=== PATIENT | female | born 1990 | race Caucasian/White ===

== ENCOUNTER 2021-09-30 13:48 | Emergency (ER) | payer OTHER, MEDICAID, SELFPAY ==
--- NOTE | ~2021-09-30 | XR_ITS ---
XR chest 2V DATE: 09/30/2021 14:28 INDICATION: Cough. TECHNIQUE: PA and lateral views COMPARISON: None FINDINGS: No pulmonary infiltrate or consolidation, pleural effusion or pulmonary vascular congestion or pneumothorax. Normal heart size. No hilar or mediastinal enlargement. Included skeletal structure s are unremarkable. IMPRESSION: Negative Reviewed, dictated and finalized at location A. IMPRESSION: Negative
[2021-09-30 14:17] VITALS: BP 122/78; PULSE 122; RESP 16; TEMP 37.3; O2SAT 98
--- NOTE | 2021-09-30 14:24 | ED.GENADULT ---
HPI - General Adult General Chief complaint: Upper Respiratory Infection Stated complaint: fever w/ cold Source: patient Mode of arrival: ambulatory Limitations: no limitations History of Present Illness HPI narrative: Patient presents for evaluation of respiratory symptoms for the last 2-1/2 weeks. Symptoms include sinus congestion, thick green/yellow drainage from bilateral nares, productive cough of yellow/green sputum, and fever. She denies chills, nausea, vomiting, diarrhea, shortness of breath, sore throat or otalgia. She had pneumonia back in June 2021 and was treated with amoxicillin at [facility]. She came down with COVID shortly thereafter. She does smoke about 1/2 ppd. She has been taking mucinex without considerable improvement in her symptoms thereafter. She states she had similar symptoms in the past with a sinus infection. Related Data Home Medications Medication Instructions Recorded Confirmed risperidone 0.5 mg PO BID 09/30/21 09/30/21 Allergies Allergy/AdvReac Type Severity Reaction Status Date / Time bacitracin Allergy Mild rash Verified 09/30/21 14:10 neomycin Allergy Mild rash Verified 09/30/21 14:10 polymyxin B Allergy Mild rash Verified 09/30/21 14:10 Review of Systems Review of Systems: CONSTITUTIONAL: Reports fever. Denies chills, or sweats. EYES: Denies visual changes, redness, or discharge. ENT: Reports sinus congestion and thick yellow, green drainage CARDIOVASCULAR: Denies chest pain, palpitations, or edema. RESPIRATORY: Reports cough. Denies SOB. GASTROINTESTINAL: Denies abdominal pain, nausea, vomiting, or diarrhea. GENITOURINARY: Denies dysuria or hematuria. SKIN: Denies rash or itching. MUSCULOSKELETAL: Denies back pain, joint pain, or myalgia. NEUROLOGIC: Denies headache, numbness, dizziness, or weakness. PSYCHIATRIC: Denies anxiety or depression. [facility] Past Medical History Medical History Anxiety Surgical History Surgical History (Updated 09/30/21 @ 14:26 by JOHNNIE Atkinson, RODNEY) History of salpingectomy Family History Family History Mother Family history non-contributory Social History Social History Smoking packs per day: 0.5 Smoking cigarettes per day: 10.0 Smoking status: Current every day smoker Alcohol intake: never Substance use: never Living arrangements: with family Gender identity (if verbalized by the patient): Female Sexual Orientation (if Verbalized by the Patient): Straight or Heterosexual Spiritual care concerns: No Exam Narrative: GENERAL: Well-appearing, well-nourished, and in no acute distress. HEAD: Normocephalic, atraumatic. EYES: PERRLA and EOMI. ENT: Nares clear, no rhinorrhea or epistaxis. Mucous membranes moist. Oropharynx without tonsillar hypertrophy exudate or other lesions. Bilateral TMs pearly navas nonbulging NECK: Supple. No adenopathy or masses. No carotid bruits or JVD CHEST: Cough noted on exam. Clear to auscultation. No respiratory distress. No wheezes rales or rhonchi HEART: Regular rate and rhythm. No murmur heard. Normal peripheral pulses. ABDOMEN: Soft, nontender, nondistended, normal active bowel sounds. EXTREMITIES: Normal range of motion. No edema. SKIN: Warm, dry, no rash. NEURO: No focal deficits. Alert and oriented x3. PSYCH: Normal mood and affect. Course Course Emergency Course: This is a 30-year-old female who presented with complaints of respiratory symptoms. Strep, influenza were negative. Chest x-ray was negative. She does meet criteria for ABRS based on symptom duration, presence of thick mucopurulent drainage from the naris and presence of fever. In past augmentin has helped. We will send script in for this. She should follow up outpatient for further evaluation and treatment and re
== END 2021-09-30 15:25 | disposition home or self-care (01) ==
PROVIDERS: Emergency Provider Nurse Practitioner
DX: J01.90 Acute sinusitis, unspecified (principal); F17.210 Nicotine dependence, cigarettes, uncomplicated
CPT/HCPCS: 71046; 87081; 87804; 87880; 99213; G0463

== ENCOUNTER 2022-02-13 15:06 | Emergency (ER) | payer OTHER, MEDICAID, SELFPAY ==
--- NOTE | ~2022-02-13 | XR_ITS ---
EXAMINATION: XR ankle RT min 3V DATE: 02/13/2022 15:27 INDICATION: Right ankle pain. Fall. TECHNIQUE: 4 views of right ankle were obtained. COMPARISON: None. FINDINGS: Bone alignment is normal. No fracture. Joint spaces are normal. There is ankle soft tissue swelling. IMPRESSION: 1. No fracture. Reviewed, dictated and finalized at location A. IMPRESSION: 1. No fracture.
--- NOTE | 2022-02-13 15:07 | ED.LOWEXIN ---
HPI - Extremity Injury (Lower) General Stated Complaint: right ankle injury Time Seen by Provider: 02/13/22 15:07 Source: patient Mode of arrival: ambulatory Limitations: no limitations History of Present Illness HPI Narrative: Ms. Carrillo is a 31-year-old female patient presented to the clinic today with complaints of right ankle injury/pain. She reports she was taking out the trash around 1:00 today when her son bumped into her and that tripped her and she fell injuring her right ankle. She states that her ankle went in every which way and she felt a pop with pain radiating up her leg. She says the entire ankle hurts at this time and she has a lot of pain with walking. Related Data Home Medications Medication Instructions Recorded Confirmed risperidone 0.5 mg tablet 0.5 mg PO BID 09/30/21 09/30/21 Allergies Allergy/AdvReac Type Severity Reaction Status Date / Time bacitracin Allergy Mild rash Verified 02/13/22 15:17 neomycin Allergy Mild rash Verified 02/13/22 15:17 polymyxin B Allergy Mild rash Verified 02/13/22 15:17 Review of Systems Review of Systems: Pertinent positives per HPI. Patient denies any fever, chills, rash, headache, visual changes, dizziness, cough, runny nose, sore throat, shortness of breath, chest pain, palpitations, nausea, vomiting, diarrhea, constipation, abdominal pain, or any urinary issues. [facility] Past Medical History Medical History Anxiety Surgical History Surgical History History of salpingectomy Family History Family History Mother Family history non-contributory Social History Social History Smoking packs per day: 0.5 Smoking cigarettes per day: 10.0 Smoking status: Current every day smoker Alcohol intake: never Substance use: never Gender identity (if verbalized by the patient): Female Sexual Orientation (if Verbalized by the Patient): Straight or Heterosexual Spiritual care concerns: No Comments At the time of my signature, I reviewed and agree with the nursing past medical, surgical, social, and family history. There is no relevant family history pertinent to the patient complaint. Exam Narrative: General: Well-developed, well nourished, in no apparent distress Head: Normocephalic, atraumatic. Cardio: Regular rate and rhythm, s1 and s2 normal, no murmur appreciated. Resp: Clear to auscultation bilaterally, no rhonchi, rales, wheezing or rubs. Musculoskeletal: No deformity, tender to palpation over the ankle joint mostly to the lateral malleolus, grossly normal range of motion however she does have a lot of pain with range of motion, muscle strength strong and equal, peripheral pulse strong, no edema, no cyanosis, normal gait and station Course Course Emergency Course: Portions of this record may have been created with voice recognition software. Level of Care: Express Care Visit Vital Signs Vital signs: Vital signs reviewed MDM - Extremity Injury (Lower) MDM Narrative Medical decision making narrative: At the time of visit patient is resting comfortably on the exam table. X-ray was performed and was negative for any fracture of the right ankle. I suspect patient has some right ankle sprain and supportive measures were discussed with the patient she voiced understanding of discharge instructions and agrees to treatment plan. Differential Diagnosis Differential diagnosis: Likely ankle sprain and strain and ankle fracture Imaging Data Attestation: I personally reviewed and interpreted this imaging study as follows: My impression: Negative for fracture or malalignment of the right ankle. Radiologist's impression: [facility] [address] [employer] [place] [address] XRa
[2022-02-13 15:11] VITALS: BP 119/68; PULSE 90; RESP 14; TEMP 36.9; O2SAT 99
== END 2022-02-13 15:43 | disposition home or self-care (01) ==
PROVIDERS: Emergency Provider Nurse Practitioner Family
DX: S93.401A Sprain of unspecified ligament of right ankle, initial encounter (principal); W03.XXXA Other fall on same level due to collision with another person, initial encounter; F17.210 Nicotine dependence, cigarettes, uncomplicated
CPT/HCPCS: 73610; 99213; G0463

== ENCOUNTER 2022-11-14 13:36 | Emergency (ER) | payer OTHER, SELFPAY ==
[2022-11-14 13:51] VITALS: BP 142/73; PULSE 107; RESP 16; TEMP 36.9; O2SAT 98
--- NOTE | 2022-11-14 14:04 | ED.EYEPROB ---
HPI - Eye Problem General Chief complaint: Eye Problems Stated complaint: Eye Problem Source: patient and RN notes reviewed History of Present Illness HPI Narrative: Patient is 31-year-old female with complaints of right eye redness that has been present for the past couple weeks. Patient states she wakes up in the morning with yellow-green drainage from the eye. Patient reports mild pain to the eye. There is no edema noted. Denies visual disturbance. Patient also reports nasal congestion and drainage; states that her allergies have been bothering her for approximately two months. She reports history of seasonal allergies. Related Data Home Medications Medication Instructions Recorded Confirmed buspirone 10 mg tablet mg 11/14/22 fluticasone propionate 50 intranasal 11/14/22 mcg/actuation nasal spray,suspension risperidone 1 mg tablet mg 11/14/22 11/14/22 Allergies Allergy/AdvReac Type Severity Reaction Status Date / Time bacitracin Allergy Mild rash Verified 11/14/22 14:00 neomycin Allergy Mild rash Verified 11/14/22 14:00 polymyxin B Allergy Mild rash Verified 11/14/22 14:00 Review of Systems Review of Systems: CONSTITUTIONAL: Denies fever, chills, or sweats. EYES: Denies visual changes. Reports right eye redness and yellow/green discharge. ENT: Denies otalgia and sore throat. Reports nasal drainage and congestion. CARDIOVASCULAR: Denies chest pain, palpitations, or edema. RESPIRATORY: Denies cough or dyspnea. GASTROINTESTINAL: Denies abdominal pain, nausea, vomiting, or diarrhea. GENITOURINARY: Denies dysuria or hematuria. SKIN: Denies rash or itching. MUSCULOSKELETAL: Denies back pain, joint pain, or myalgia. NEUROLOGIC: Denies headache, numbness, or weakness. Pertinent positives per HPI. [facility] Past Medical History Medical History Anxiety Surgical History Surgical History History of salpingectomy Family History Family History Mother Family history non-contributory Social History Social History Smoking packs per day: 0.5 Smoking cigarettes per day: 10.0 Smoking status: Current every day smoker Alcohol intake: never Substance use: never Living arrangements: with family Gender identity (if verbalized by the patient): Female Sexual Orientation (if Verbalized by the Patient): Straight or Heterosexual Spiritual care concerns: No Comments At the time of my signature, I reviewed and agree with the nursing past medical, surgical, social, and family history. There is no relevant family history pertinent to the patient complaint. Exam Narrative: GENERAL: This is a well-nourished, well-developed patient, in no apparent distress. HEAD: normocephalic, atraumatic. EYES: PERRL. Sclera injection noted to right eye. No drainage noted. Vision is grossly intact with no visual disturbance. EARS: External ears normal, auditory canals clear and without drainage, TMs normal without perforation. Hearing grossly intact. NOSE: External nose normal with no obvious nasal discharge, nares without redness, no rhinorrhea. THROAT: Mucous membranes moist, posterior pharynx clear. NECK: Neck supple, non-tender without lymphadenopathy, masses or thyromegaly. CARDIOVASCULAR: Regular rate and rhythm without murmurs, gallops, or rubs. RESPIRATORY: Clear to auscultation. Breath sounds equal bilaterally. No wheezes, rales, or rhonchi. GASTROINTESTINAL: Abdomen soft, non-tender, nondistended. Bowel sounds are active. No hepato-splenomegaly, or palpable masses. No guarding. SKIN: warm, intact with no suspicious lesions or rash, good texture and turgor. NEURO: awake, alert, and oriented to person, place and time. There were no obvious focal neurologic abnormalities. EXTREMITIES: No clubbing,
== END 2022-11-14 14:10 | disposition home or self-care (01) ==
PROVIDERS: Emergency Provider Nurse Practitioner Family
DX: H10.9 Unspecified conjunctivitis (principal); F17.210 Nicotine dependence, cigarettes, uncomplicated
CPT/HCPCS: 99213; G0463

== ENCOUNTER 2022-11-26 12:22 | Emergency (ER) | payer OTHER, MEDICAID, SELFPAY ==
--- NOTE | ~2022-11-26 | XR_ITS ---
. XR ankle LT min 3V 11/26/2022 12:48 INDICATION: Left ankle pain PROCEDURE: 4 views left ankle COMPARISON: No prior studies FINDINGS: Fracture, dislocation or subluxation is not identified. Ankle mortise intact. The soft tiss ues appear within normal limits. No foreign bodies are identified. IMPRESSION: 1: NO ACUTE BONE OR JOINT ABNORMALITY IDENTIFIED. Reviewed, dictated and finalized at location L.
[2022-11-26 12:29] VITALS: BP 114/73; PULSE 74; RESP 18; TEMP 36.7; O2SAT 98
--- NOTE | 2022-11-26 12:30 | ED.LOWEXIN ---
HPI - Extremity Injury (Lower) General Chief Complaint: Extremity Injury, Lower Stated Complaint: Left Ankle Injury Source: patient and RN notes reviewed History of Present Illness HPI Narrative: 31 yo F presents to urgent care with complaints of left lateral ankle pain. Pt states one week ago, she was mowing the lawn when she stepped in a hole and rolled her left ankle. Pt states she felt a pop at this time. Pt reports having pain still, mostly with applying pressure to the foot. Denies any numbness, tingling, or any other complaints. Pt has been using the RICE method at home and taking ibuprofen with minimal relief. Related Data Home Medications Medication Instructions Recorded Confirmed buspirone 10 mg tablet 10 mg PO TID 11/14/22 11/26/22 risperidone 1 mg tablet 1 mg PO BID 11/14/22 11/26/22 Allergies Allergy/AdvReac Type Severity Reaction Status Date / Time bacitracin Allergy Mild rash Verified 11/26/22 12:36 neomycin Allergy Mild rash Verified 11/26/22 12:36 polymyxin B Allergy Mild rash Verified 11/26/22 12:36 Review of Systems Review of Systems: CONSTITUTIONAL: Denies fever, chills, or sweats. EYES: Denies visual changes, redness, or discharge. ENT: Denies otalgia and sore throat CARDIOVASCULAR: Denies chest pain, palpitations, or edema. RESPIRATORY: Denies cough or dyspnea. GASTROINTESTINAL: Denies abdominal pain, nausea, vomiting, or diarrhea. GENITOURINARY: Denies dysuria or hematuria. SKIN: Denies rash or itching. MUSCULOSKELETAL:left lateral ankle pain NEUROLOGIC: Denies headache, numbness, or weakness. Pertinent positives per HPI. [facility] Past Medical History Medical History Anxiety Surgical History Surgical History History of salpingectomy Family History Family History Mother Family history non-contributory Social History Social History Smoking packs per day: 0.5 Smoking cigarettes per day: 10.0 Smoking status: Current every day smoker Alcohol intake: never Substance use: never Living arrangements: with family Gender identity (if verbalized by the patient): Female Sexual Orientation (if Verbalized by the Patient): Straight or Heterosexual Spiritual care concerns: No Comments At the time of my signature, I reviewed and agree with the nursing past medical, surgical, social, and family history. There is no relevant family history pertinent to the patient complaint. Exam Narrative: GENERAL: This is a well-nourished, well-developed patient, in no apparent distress. HEAD: normocephalic, atraumatic. EYES: Sclera clear/white. Vision is grossly intact. EARS: External ears normal, auditory canals clear and without drainage. Hearing grossly intact. NOSE: External nose normal with no obvious nasal discharge, nares without redness, no rhinorrhea. THROAT: Mucous membranes moist, posterior pharynx clear. NECK: Neck supple, non-tender without lymphadenopathy, masses or thyromegaly. CARDIOVASCULAR: Regular rate RESPIRATORY: No respiratory distress SKIN: warm, intact with no suspicious lesions or rash, good texture and turgor. NEURO: awake, alert, and oriented to person, place and time. There were no obvious focal neurologic abnormalities. EXTREMITIES:tenderness to left, lateral ankle, just inferior to lateral malleolus. Course Course Level of Care: Express Care Visit Vital Signs Vital signs: Vital Signs Temperature 98.1 F 11/26/22 12:29 Pulse Rate 74 11/26/22 12:29 Respiratory Rate 18 11/26/22 12:29 Blood Pressure 114/73 11/26/22 12:29 Pulse Oximetry 98 11/26/22 12:29 Oxygen Delivery Room Air 11/26/22 12:29 Temperature 98.1 F 11/26/22 12:29 Pulse Rate 74 11/26/22 12:29 Respiratory Rate 18 11/26/22 12:29
== END 2022-11-26 13:15 | disposition home or self-care (01) ==
PROVIDERS: Emergency Provider Nurse Practitioner Family
DX: S93.402A Sprain of unspecified ligament of left ankle, initial encounter (principal); S96.912A Strain of unspecified muscle and tendon at ankle and foot level, left foot, initial encounter; X50.9XXA Other and unspecified overexertion or strenuous movements or postures, initial encounter; F41.9 Anxiety disorder, unspecified
CPT/HCPCS: 73610; 99213; G0463

== ENCOUNTER 2023-09-09 09:05 | Emergency (ER) | payer OTHER, SELFPAY ==
--- NOTE | ~2023-09-09 | XR_ITS ---
EXAMINATION: XR chest 2V DATE: 09/09/2023 09:47 INDICATION: Cough, tobacco use TECHNIQUE: PA and lateral views of the chest are obtained. COMPARISON: 09/30/2021 FINDINGS: The lungs are free of acute opacities. No pleural effusion or pneumothorax. The cardiomedia stinal silhouette is normal. The visualized bones and soft tissues are unremarkable. IMPRESSION: 1. No acute cardiopulmonary abnormality. Reviewed, dictated and finalized at location L. EAR STATION OPERATOR
[2023-09-09 09:09] VITALS: BP 123/79; PULSE 82; RESP 16; TEMP 36.4; O2SAT 98
--- NOTE | 2023-09-09 09:38 | ED.GENADULT ---
HPI - General Adult General Chief complaint: Upper Respiratory Infection Stated complaint: cough/throat Source: patient Mode of arrival: ambulatory Limitations: no limitations History of Present Illness HPI narrative: Patient presents for evaluation of cough for last 5 days. Cough is nonproductive but she has associated shortness of breath. No fever, chills, nausea, vomiting, diarrhea. Her and children had influenza B last week and the week prior to that time. She has tried DayQuil, dull some and Mucinex without considerable improvement in her symptoms or after. She smokes approximately half a pack per day. Related Data Home Medications Medication Instructions Recorded Confirmed dextroamphetamine-amphetamine ER PO 09/09/23 20 mg 24hr capsule,extend release Allergies Allergy/AdvReac Type Severity Reaction Status Date / Time bacitracin Allergy Mild rash Verified 11/26/22 12:36 neomycin Allergy Mild rash Verified 11/26/22 12:36 polymyxin B Allergy Mild rash Verified 11/26/22 12:36 Review of Systems Review of Systems: CONSTITUTIONAL: Denies fever, chills, or sweats. EYES: Denies visual changes, redness, or discharge. ENT: Denies rhinorrhea, congestion, sore throat, or otalgia. CARDIOVASCULAR: Denies chest pain, palpitations, or edema. RESPIRATORY: Reports nonproductive cough and shortness of breath GASTROINTESTINAL: Denies abdominal pain, nausea, vomiting, or diarrhea. GENITOURINARY: Denies dysuria or hematuria. SKIN: Denies rash or itching. MUSCULOSKELETAL: Denies back pain, joint pain, or myalgia. NEUROLOGIC: Denies headache, numbness, dizziness, or weakness. PSYCHIATRIC: Denies anxiety or depression. REPLACED BY [facility] Past Medical History Medical History (Updated 09/09/23 @ 10:03 by JOHNNIE Atkinson, RODNEY) Anxiety Cough Surgical History Surgical History History of salpingectomy Family History Family History Mother Family history non-contributory Social History Social History Smoking packs per day: 0.5 Smoking cigarettes per day: 10.0 Smoking status: Current every day smoker Alcohol intake: never Substance use: never Living arrangements: with family Gender identity (if verbalized by the patient): Female Sexual Orientation (if Verbalized by the Patient): Straight or Heterosexual Spiritual care concerns: No Exam Narrative: GENERAL: Well-appearing, well-nourished, and in no acute distress. HEAD: Normocephalic, atraumatic. EYES: PERRLA and EOMI. ENT: Nares clear, no rhinorrhea or epistaxis. Mucous membranes moist. Oropharynx without tonsillar hypertrophy exudate or other lesions. Bilateral TMs pearly navas nonbulging NECK: Supple. No adenopathy or masses. No carotid bruits or JVD CHEST: Rales noted in posterior lung ornelas bilaterally. HEART: Regular rate and rhythm. No murmur heard. Normal peripheral pulses. ABDOMEN: Soft, nontender, nondistended, normal active bowel sounds. EXTREMITIES: Normal range of motion. No edema. SKIN: Warm, dry, no rash. NEURO: No focal deficits. Alert and oriented x3. PSYCH: Normal mood and affect. Course Course Emergency Course: This is a 32-year-old female who presented for evaluation of cough for last 5 days. COVID, strep, influenza were all negative. Chest x-ray normal. Exam is consistent with acute viral syndrome. She requested cough syrup with codeine. Advised to take it cautiously. Follow up with primary provider. Go to the ER for worsening symptoms. Pt in agreement with plan of care. Level of Care: Express Care Visit Vital Signs Vital signs: Vital Signs Temperature 36.4 C 09/09/23 09:09 Pulse Rate 82 09/09/23 09:09 Respiratory Rate 16 09/09/23 09:09 Blood Pressure 123/79 09/09/23 09:09 Pulse Oximetry 98 09/09/23 09:09
== END 2023-09-09 10:10 | disposition home or self-care (01) ==
PROVIDERS: Emergency Provider Nurse Practitioner
DX: B34.9 Viral infection, unspecified (principal); Z20.822 Contact with and (suspected) exposure to COVID-19; F17.210 Nicotine dependence, cigarettes, uncomplicated
CPT/HCPCS: 71046; 87081; 87426; 87804; 87880; 99213; G0463

== ENCOUNTER 2024-09-23 08:23 | Emergency (ER) | payer SELFPAY ==
--- NOTE | 2024-09-23 08:26 | ED.GENADULT ---
HPI - General Adult General Chief complaint: Extremity Problem,Nontraumatic Stated complaint: left calf pain Time Seen by Provider: 09/23/24 08:32 Source: patient, RN notes reviewed and old records reviewed Mode of arrival: ambulatory Limitations: no limitations History of Present Illness HPI narrative: 33-year-old female presents to the [facility] with complaints of left mid medial calf pain. patient states that she got out of bed felt a pop and a pain in the mid medial calf. denies any trauma/ injury to the area Reports that she has taken Tylenol and ibuprofen walks with a slight limp no erythema, ecchymosis or swelling noted no lower leg edema noted Onset (ago): hour(s) (1-2) Treatments prior to arrival: NSAID Related Data Home Medications ?Medication ?Instructions ?Recorded ?Confirmed ?Last Taken ?Type dextroamphetamine-amphetamine ER PO 09/09/23 Unknown History 20 mg 24hr capsule,extend release buspirone 10 mg tablet mg 09/23/24 Unknown History methylphenidate HCl 20 mg tablet mg 09/23/24 Unknown History risperidone 2 mg tablet mg 09/23/24 Unknown History Allergies Allergy/AdvReac Type Severity Reaction Status Date / Time bacitracin Allergy Mild rash Verified 11/26/22 12:36 neomycin Allergy Mild rash Verified 11/26/22 12:36 polymyxin B Allergy Mild rash Verified 11/26/22 12:36 Review of Systems Review of Systems: All systems reviewed & are unremarkable except as noted in HPI and below Constitutional: Constitutional: Reports no additional constitutional complaints ENT: Reports system reviewed and no additional complaints, except as documented Cardiovascular: Cardiovascular: Reports no additional cardiovascular complaints, Denies chest pain and Denies dyspnea Respiratory: Respiratory: Reports no additional respiratory complaints, Denies chest congestion, Denies cough and Denies dyspnea Musculoskeletal: Musculoskeletal: Reports as per HPI, Denies arthralgias, Denies joint swelling, Reports muscle cramps and Denies numbness Integumentary/Breasts: Skin/Breast: Reports system reviewed and no additional complaints, except as docu PMFSH Past Medical History Medical History Cough Anxiety Surgical History Surgical History History of salpingectomy Family History Family History Mother Family history non-contributory Social History Social History Smoking packs per day: 0.5 Smoking cigarettes per day: 10.0 Smoking status: Current every day smoker Alcohol intake: never Substance use: never Living arrangements: with family Gender identity (if verbalized by the patient): Female Sexual Orientation (if Verbalized by the Patient): Straight or Heterosexual Spiritual care concerns: No Comments At the time of my signature, I reviewed and agree with the nursing past medical, surgical, social, and family history. There is no relevant family history pertinent to the patient complaint. Exam Const: General: cooperative, healthy appearing, comfortable, no acute distress, well developed, alert and well nourished Nutritional Appearance: well nourished Orientation/consciousness: patient oriented x3 Limitations: no limitations HENMT: Head: normal to inspection Eyes: General: appearance normal, both eyes and all related structures Alignment and Position: alignment normal Neck: Neck: normal visual inspection, full ROM, no lymphadenopathy and no meningeal signs Chest: Chest palpation & inspection: normal inspection of the chest Resp: Effort & Inspection: normal respiratory effort and able to speak in complete sentences Cardio: Rate: regular rate Skin: General skin exam: normal color and no rashes or lesions noted Neuro: General: patient oriented x3, gait normal, moves all extremities and no meningeal signs Cognition (Neuro): normal cognition Speech: normal speech Gait exam (Neuro): Normal gait present Extrem: General: normal to inspection, full ROM, capillary refill normal and normal gait Left lower extremity: normal capillary refill, knee Details: normal to inspection and normal ROM; no tenderness, lower leg Details: tenderness ( mid medial calf) and no edema; no erythema, no localized swelling, no palpable cords, no pitting edema, no abrasions, no lacerations, no ecchymosis, no crepitus, no foreign bodies, no penetrating wound and no deformity and ankle Details: normal to inspection, no edema and abnormal ROM Details: pain with active ROM Details: with dorsiflexion and pain with passive ROM Details: with dorsiflexion Psych: Appearance: grossly normal and well kempt Mental Status: mental status grossly normal Speech and movement: Normal speech and movement present and Clear speech present Affect: normal affect Attitude: cooperative Course Course Level of Care: Express Care Visit Vital Signs Vital signs: Vital Signs Temperature 97.8 F 09/23/24 08:30 Pulse Rate 98 09/23/24 08:30 Respiratory Rate 20 09/23/24 08:30 Blood Pressure 121/73 09/23/24 08:30 Pulse Oximetry 98 09/23/24 08:30 Oxygen Delivery Room Air 09/23/24 08:30 Temperature 97.8 F 09/23/24 08:30 Pulse Rate 98 09/23/24 08:30 Respiratory Rate 20 09/23/24 08:30 Blood Pressure 121/73 09/23/24 08:30 Pulse Oximetry 98 09/23/24 08:30 Oxygen Delivery Room Air 09/23/24 08:30 Reviewed Medical Decision Making MDM Narrative Medical decision making narrative: Patient sitting comfortably in exam room. Nontoxic, vitals stable. Patient in no acute distress Patient presents for left mid medial calf. No injury. Started just prior to arrival. No erythema, ecchymosis or swelling noted. No edema noted. Pain with dorsiflexion only. Able to plantar flex without issue. No injury, discussed x-rays which show fractures. Does not show muscle injury. Patient is appropriate for outpatient treatment with close follow-up I have a muscle strain. Discharge instructions reviewed with patient, as well as provided in writing per nursing staff. The instructions also include specific and strict return/GO TO THE ER as well as f/u information. All questions have been answered, and the patient deny any further questions with discharge and discharge plan. Some parts of this dictation were generated by voice recognition software and may contain typographical and/or grammatical inaccuracies. Differential Diagnosis Differential Diagnosis: Muscle pain, strain, DVT, fracture Medical Records Medical records reviewed: Yes I reviewed the external patient's medical records. Vital Signs Vital Signs: Vital Signs Temperature 97.8 F 09/23/24 08:30 Pulse Rate 98 09/23/24 08:30 Respiratory Rate 20 09/23/24 08:30 Blood Pressure 121/73 09/23/24 08:30 Pulse Oximetry 98 09/23/24 08:30 Oxygen Delivery Room Air 09/23/24 08:30 Temperature 97.8 F 09/23/24 08:30 Pulse Rate 98 09/23/24 08:30 Respiratory Rate 20 09/23/24 08:30 Blood Pressure 121/73 09/23/24 08:30 Pulse Oximetry 98 09/23/24 08:30 Oxygen Delivery Room Air 09/23/24 08:30 Reviewed Lab Data Lab results reviewed: Yes I reviewed the patient's lab results. Labs: Reviewed Critical Care Time Critical Care Time Critical Care Time: No Discharge Plan Discharge Clinical Impression: Strain of left calf muscle Patient Disposition: Home, Self-Care Condition: Stable Instructions: Muscle Strain (ED), Leg Cramps (ED) Additional Instructions: rest, ice and elevate every 2-3 hours for 15-20 minutes while awake. If ice bothers you try using warm moist heat. You could also use topical such as Biofreeze, Xavier-Dukes or Aspercreme. Take muscle relaxer and anti-inflammatory ibuprofen as prescribed do light stretches, range of motion exercises with your ankle 4 times a day if symptoms are not improving in 1 week follow-up with your primary care provider for further evaluation, testing and treatment for new or worsening symptoms please go directly to the nearest emergency room Patient Language: Korean Prescriptions: New baclofen 10 mg tablet 10 mg PO TID PRN (Reason: muscle pain) Qty: 10 0RF ibuprofen 600 mg tablet 600 mg PO TID PRN (Reason: fever or pain) Qty: 30 0RF No Action methylphenidate HCl 20 mg tablet risperidone 2 mg tablet buspirone 10 mg tablet dextroamphetamine-amphetamine 20 mg capsule,extended release 24hr PO Follow-up/Referrals: PHYSICIAN NOT ON STAFF,NONSTAFF [Primary Care Provider] - Stand Alone Forms: Work/School Release IP Time of Disposition: 08:42
[2024-09-23 08:30] VITALS: BP 121/73; PULSE 98; RESP 20; TEMP 36.6; O2SAT 98
--- OUTSIDE RECORDS SUMMARY | 2024-09-23 08:43 | XMS_ITS | Encounter Summary ---
Author Organization [facility] Address [address] [place] [address] Phone Care Team Providers Care Intrusion Analyst Name Role Phone Arsenio Mendes [facility] Primary Care Provider Reason for Visit * Reason Comments Medication Refill Encounter Details Date Type Department Care Team (Late st Contact Info) Description 01/08/2023 Refill [facility] - Primary Care - [place] [address] [place] [phone] Ila Kwan, CORE CARRIER, GENERAL EDUCATION INSTRUCTOR [address] [place] [address] Medication Refill Social History Tobacco Use Types Packs/Day Years Used Date Smoking Tobacco: Every Day Cigarettes 1 7 Smokeless Tobacco: Never Alcohol Use Standard Drinks/Week Comments Yes 0 (1 standard drink = 0.6 oz pur e alcohol) Very rarely PHQ-2 Answer Date Recorded Total Score - Questions 1-9 1 08/2020 Education Answer Date Recorded What is the highest level of school you have completed or the highest degree you have received? 11th grade 05/17/2022 Sexually Active Control Partners Comments Not Currently Male Comments No Sex and Gender Information Value Date Recorded Sex Assigned at Not on file Legal Sex Female 10:26 PM CDT Gender Identity Not on file Sexual Orientation Not on file Occupation Industry Job Start Date Job End Date unemployed Not on file Not on file Not on file documented as of this encounter Miscellaneous Notes * Telephone Encounter - Arsenio Mendes PAC - 01/08/2023 9:23 AM CDT Rx requests approved. * Telephone Encounter - Wendy Ngo RN - 01/08/2023 7:49 AM CDT Per nursing clinical judgement, provider to review and approve the medication(s) order(s) if appropriate. Requested Prescriptions Pending Prescriptions Disp Refills risperiDONE (RISPERDAL) 1 MG Tablet [Pharmacy Med Name: RISPERIDONE 1 MG TABLET] 60 Tablet 2 Sig: TAKE 1 TABLET BY MOUTH TWICE A DAY Not Delegated - Antipsychotic Protocol Failed - 01/08/2023 12:06 AM Failed - This refill cannot be delegated Passed - Visit with relevant provider in past 12 months or upcoming 90 days Recent Visits Date Type Provider Dept 11/18/22 Office Visit Arsenio Mendes, PAC [facility] [place] [facility] 10/24/22 Office Visit Arsenio Mendes, PAC [facility] [place] [facility] 10/15/22 Office Visit Ila Kwan APRN, GENERAL EDUCATION INSTRUCTOR [facility]22 Office Visit Erika Rowe APRN, GENERAL EDUCATION INSTRUCTOR [facility] [place] [facility] 05/31/22 Office Visit Ila Kwan APRN, GENERAL EDUCATION INSTRUCTOR [facility] Showing recent visits within past 365 days and meeting all other requirements Future Appointments Date Type Provider Dept 01/20/23 Appointment [facility]io Mendes, [facility] Show[facility] future appointments within next 90 days and meeting all other requirements busPIRone (BUSPAR) 10 MG Tablet [Pharmacy Med Name: BUSPIRONE HCL 10 MG TABLET] 90 Tablet 2 Sig: TAKE 1 TABLET BY MOUTH THREE TIMES A DAY Buspirone (6 Month Refill Only) Protocol Failed - 01/08/2023 12:06 AM Failed - Has an encounter in the past 6 months with a depression or anxiety visit diagnosis Passed - No test in the past 12 months or most recent test was negative Passed - No active on record Passed - Visit with relevant provider in past 6 months or upcoming 90 days Recent Visits Date Type Provider Dept 11/18/22 Office Visit Arsenio Mendes, PAC [facility] [address] [facility] 10/24/22 Office Visit Arsenio Mendes, PAC [facility] [address] [facility] 10/15/22 Office Visit Ila Kwan APRN, GENERAL EDUCATION INSTRUCTOR [facility] [address] [facility] 09/27/22 Office Visit Arsenio Mendes, PAC [facility] [address] [facility] 09/13/22 Office Visit Erika Rowe APRN, GENERAL EDUCATION INSTRUCTOR [facility] [address] [facility] Showing recent visits within past 182 days and meeting all other requirements Future Appointments Date Type Provider Dept 01/20/23 Appointment Arsenio Mendes, PAC [facility] [address] [facility] Showing future appointments within next 90 days and meeting all other requirements Passed - Patient has established therapy with Buspirone for at least 6 months documented in this encounter Plan of Treatment Upcoming Encounters Date Type Department Care Team (Late st Contact Info) Description 09/27/2024 8:45 AM CDT Office Visit [facility] - [facility] Care - [place] [address] [place] [phone] Arsenio Mendes PAC [address] [place] [phone] documented as of this encounter Visit Diagnoses Not on filedocumented in this encounter Additional Health Concerns Assessment Noted Time PHQ-9 Depression Total Score: 1 05/15/20 21 9:00 AM CDT documented as of this encounter Care Teams Intrusion Analyst Relationship Specialty Start Date End Date Arsenio Mendes PAC [address] [place] [phone] PCP - General Physician Car Cooper 11/18/22 documented as of this encounter
--- OUTSIDE RECORDS SUMMARY | 2024-09-23 08:43 | XMS_ITS | Clinical Summary ---
Author Organization [facility] Address [address] [place] [address] Phone Care Team Providers Care Manager Chemistry Name Role Phone Arsenio Mendes Primary Care Provider [phone] Allergies Active Allergy Reactions Criticality Noted Date Comments Fluoxetine Hives Medium 07/05/2023 Neomycin-Bacitracin Zn-Polymyx Itching 01/27 Medications loratadine (CLARITIN) 10 MG Tablet Take 10 mg by mouth daily. 0 9 Active Sprintec 28 0.25-35 MG-MCG Tablet Take 1 Tablet by mouth daily. 4 Active cyclobenzaprine (FLEXERIL) 5 MG TabletIndications: Strain of lumbar region, initial encounter Take 1 Tablet by mouth 3 times daily as needed for Muscle spasms. 30 Tablet 4 Active Omeprazole 20 MG Tablet Delayed Response Take 1 Tablet by mouth daily. Active methylphenidate (RITALIN) 20 MG TabletIndications: ADHD (attention deficit hyperactivity disorder), combined type Take one tablet twice daily with 10mg dose for a total of 30mg BID. 60 Tablet 5 Active methylphenidate (RITALIN) 10 MG TabletIndications: ADHD (attention deficit hyperactivity disorder), combined type Take one tablet twice daily with 20mg dose for a total of 30mg BID. 60 Tablet 5 Active risperiDONE (RisperDAL) 2 MG TabletIndications: Generalized anxiety disorder,Current mild episode of major depressive disorder, unspecified whether recurrent (HCC) Take 1 tablet by mouth twice daily 180 Tablet 5 Active busPIRone (BUSPAR) 10 MG Tablet Take 1 Tablet by mouth 3 times daily. 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, 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 Conductive hearing loss of combined sites 2016 Generalized anxiety disorder 01/27/2017 Depression 07/03/2016 Chronic maxillary sinusitis Chronic rhinitis Overview (04/03/2015): PNAR Chronic laryngitis Laryngopharyngeal reflux Overview (04/03/2015): Which is inadequately controlled Tobacco use disorder Resolved Problems Problem Noted Date Diagnosed Date Resolved Date ETD (Eustachian tube dysfunction), 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 05/26/2023 Nasal polyps 05/26/2023 Overview (04/03/2015): Which is improving Encounters Date Type Department Care Team Description 09/16/2024 MyChart RX Renewal [facility] - Primary Care - [address] [place] [address] Arsenio Mendes, PAC Medication Renewal Reviewed 09/06/2024 MyChart RX Renewal [facility] - Primary Care - [address] [place] [address] Arsenio Mendes, PAC Medication Renewal Reviewed 08/23/2024 MyChart RX Renewal [facility] [address] [place] [address] Arsenio Mendes, PAC Medication Renewal Reviewed 08/16/2024 [facility] [address] [place] [address] Susana Liao, COPRA PROCESSOR, RECREATION ACTIVITIES COORDINATOR 08/16/2024 [facility] [address] [place] [address] Arsenio Mendes, PAC Sinus Problem 07/26/2024 MyChart RX Renewal [facility] [address] [place] [address] Arsenio Mendes, PAC Medication Renewal Declined 07/26/2024 MyChart RX Renewal [facility] [address] [place] [address] Arsenio Mendes, PAC Medication Renewal Reviewed from Last 3 Months Immunizations Immunization Administration Dates Next Due DTAP VACCINE 10/30/1995, 2,06/21/1991,1990,02/11/1991 Hepatitis B Vaccine, Pediatric/adolescent 03/29/1997,10/14/1996,09/13/1996 Hib Vaccine,unspecified Formulation 09/1991,06/21/1991,04/22/1991,1990 Inactivated Polio Vaccine 10/30/1995,04/1992,06/21/1991,1990,02/18/1991 Influenza, Seasonal, Injecta ble, Undefined 04/25/2015 MMR Vaccine 01/03/1995,03/16/1992 Pneumococcal Vaccine - 13 Valent 07/14/2013 TD VACCINE 04/15/2005 Varicella Vaccine Live 01/20/1996 Family History Medical History Relation Name Comments Congestive Heart Failure Brother Melo Diabetes Father Melo Congestive Heart Failure Mother Remedios Heart Disease Mother Remedios Endometriosis Sister Yaquelin Migraines Sister Yaquelin ADD / ADHD Son 1 (13) ADD / ADHD Son 3 (7) Relation Name Status Comments Brother Melo Daughter (Stepdaughter, 13) Alive Father Melo Alive Mother Remedios Sister Yaquelin Alive Son 1 (13) Alive Son 2 (9) Alive Son 3 (7) Alive Social History Tobacco Use Types Packs/Day Years Used Date Smoking Tobacco: Every Day Cigarettes 1 10 Smokeless Tobacco: Never Tobacco Cessation:Ready to Q uit: Not Asked; Counseling Given: Not Answered Alcohol Use Standard Drinks/Week Comments Yes 2 (1 standard drink = 0.6 oz pur e alcohol) Very rarely [facility] Utilities Answer Date Recorded In the past 12 months has th e [employer], gas, oil, or water [employer] threatened to shut off services in your home? No 07/25/2023 Social Connection and Isolat ion Panel [NHANES] Answer Date Recorded In a typical week, how many times do you talk on the phone with family, friends, or neighbors? More than three times a week 07/25/2023 How often do you get togethe r with friends or relatives? Never 07/25/2023 How often do you attend [facility] or anabaptist services? More than 4 times per year 07/25/2023 Do you belong to any clubs o r organizations such as catholic groups, unions, fraternal or athletic groups, or school groups? No 07/25/2023 How often do you attend meet ings of the clubs or organizations you belong to? Never 07/25/2023 Are you , , di vorced, , never , or living with a partner? 07/25/2023 AUDIT-C Answer Date Recorded Q1: How often do you have a drink containing alc ohol? Monthly or less 07/25/2023 Q2: How many drinks containi ng alcohol do you have on a typical day when you are drinking? 1 or 2 07/25/2023 Q3: How often do you have si x or more drinks on one occasion? Less than monthly 07/25/2023 Overall Financial Resource Strain (CARDIA) Answe r Date Recorded How hard is it for you to pa y for the very basics like food, housing, medical care, and heating? Very hard 07/25/2023 PHQ-2 Answer Date Recorded Total Score - Questions 1-9 0 07/0 07/2023 [facility] ional Health - Occupational Stress Questionnaire Answer Date Recorded Do you feel stress - tense, restless, nervous, or anxious, or unable to sleep at night because your mind is troubled all the time - these days? To some extent 07/25/2023 Exercise Vital Sign Answer Date Recorde d On average, how many days pe r week do you engage in moderate to strenuous exercise (like a brisk walk)? 4 days 07/25/2023 On average, how many minutes do you engage in exercise at this level? 30 min 07/25/2023 Hunger Vital Sign Answer Date Recorded Within the past 12 months, y ou worried that your food would run out before you got the money to buy more. Never true 07/25/19 24 Within the past 12 months, t he food you bought just didn't last and you didn't have money to get more. Never true 07/25/2023 PRAPARE - Transportation Answer Date Re corded In the past 12 months, has l ack of transportation kept you from medical appointments or from getting medications? No 07/14 In the past 12 months, has l ack of transportation kept you from meetings, work, or from getting things needed for daily living? No 07/25/2023 Housing Stability Vital Sign Answer Ronny e Recorded In the last 12 months, was t here a time when you were not able to pay the mortgage or rent on time? No 07/25/2023 In the last 12 months, how many places have you lived? 1 07/25/2023 In the last 12 months, was t here a time when you did not have a steady place to sleep or slept in a snf (including now)? No 07/25/2023 Education Answer Date Recorded What is the highest level of school you have completed or the highest degree you have received? 11th grade 05/17/2022 Sexually Active Control Partners Comments Yes Surgical Male Comments No Sex and Gender Information Value Date Recorded Sex Assigned at Not on file Legal Sex Female 10:26 PM CDT Gender Identity Not on file Sexual Orientation Not on file Occupation Industry Job Start Date Job End Date unemployed Not on file Not on file Not on file Last Filed Vital Signs Vital Sign Reading Time Taken Comments Blood Pressure 130/68 06/23/2024 9:57 AM FLAVORER Pulse 88 06/23/2024 9:57 AM FLAVORER Temperature 36.6 C (97.9 F) 06/23/2024 9:57 AM FLAVORER Respiratory Rate 18 06/23/2024 9:57 AM FLAVORER Oxygen Saturation 96% 06/23/2024 9:57 AM FLAVORER Inhaled Oxygen Concentration - - Weight 76.2 kg (168 lb) 03/29/2024 8:35 AM CDT Height 158.8 cm (5' 2.5 ) 02/27/2024 8:36 AM CDT Body Mass Index 30.24 02/27/2024 8:36 AM CDT Plan of Treatment Upcoming Encounters Date Type Department Care Team (Late st Contact Info) Description 09/27/2024 8:45 AM CDT Office Visit [facility] - Primary Care - [address] [place] [address] Arsenio Mendes PAC [address] [place] [address] Health Maintenance Due Date Last Done Comments DTaP/Tdap/Td Immunization (6 - Tdap) 04/16/2005 04/15/2005, 10/30/1995, 06/22/1992, Additional history exists Pap Smear 12/13/2011 Pneumococcal Immunization Combined (2 of 2 - PPSV23) 09/08/2013 07/14/2013 Cervical Cancer Screening (CCS) 2020 HPV/Cotest 2020 Influenza Immunization (#1) 2024 SARS-COV-2 Immunization ( season) 2024 11/03/2020, 10/06/2020 Respiratory Syncytial Virus (RSV) Immunization (Adult) (1 - 1-dose 75+ series) 2065 Hepatitis B Immunization Completed 997, 10/14/1996, 09/13/1996 Hepatitis C Virus (HCV) Screening Completed 05/21/2021 Meningococcal Immunization (ACWY) Aged Out No longer eligible based on patient's age to complete this topic Rotavirus Immunization Aged Out No lo nger eligible based on patient's age to complete this topic Procedures Procedure Name Priority Date/Time Associated Diagnosis Comments HEPATITIS PANEL ACUTE (AHP) Routine 05/21/2021 8:56 AM FLAVORER Elevated liver function tests from Last 3 Months or Most Recently Relevant to Health Maintenance Results * HEPATITIS PANEL ACUTE (AHP) (05/21/2021 8:56 AM FLAVORER) HEPATITIS A IGM ANTIBODY NON DETECTED NON DETECTED [facility] ARCH [id number] B 05/21/2021 9:53 PM FLAVORER [facility] Comment: IGM Antibodies to HAV not detected. Does not exclude early acute or recovered HAV infection. HEP B CORE AB (IGM) NON DETECTED NON DETECTED [facility] ARCH [id number] B 05/21/2021 9:53 PM FLAVORER [facility] Comment:IGM anti-HBC not det ected. Does not exclude the possibility of exposure to or infection with HBV. HEPATITIS B SURFACE ANTIGEN NON DETECTED NON DETECTED [facility] ARCH [id number] B 05/21/2021 9:53 PM FLAVORER [facility] Comment:A nonreactive test r esult does not exclude the possibility of exposure to or infection with Hepatitis B virus. A nonreactive test result in individuals with prior exposure to hepatitis B may be due to antigen levels below the detection limit of this assay or lack of antigen reactivity to the antibodies in this assay. hepatitis C antibody 0.15 <1 S/CO [facility] ARCH [id number] B 05/21/2021 9:53 PM FLAVORER [facility] Comment: Signal/Cutoff ratio < 0.79 is Nondetected Signal/Cutoff ratio 0.80-0.99 is Grayzone Signal/Cutoff ratio > 0.99 is Detected Supplemental assays are recommended if signal/cutoff ratio is >/=1.00. Signal/cutoff ratio result >/= 5.00 is 97% predictive of positivity for recombinant immunoblot assay (RIBA) and will be reported to the [place] Department of Public Health as required. Blood Venipuncture / Unknown 05/21/2021 8:56 AM FLAVORER 05/21/2021 8:56 AM FLAVORER us Ila Kwan APRN, RECREATION ACTIVITIES COORDINATOR HEMATOLOGY ORDERABLES F inal Result [facility] [address] [place] [address], from Last 3 Months or Most Recently Relevant to Health Maintenance Insurance [email or web address] [email or web address] [facility] Care Teams Manager Chemistry Relationship Specialty Start Date End Date Arsenio Mendes, PAC [address] [place] [address] PCP - General Physician Sheet Metal Duct Installer Helper 11/18/22
--- OUTSIDE RECORDS SUMMARY | 2024-09-23 08:43 | XMS_ITS | Referral Summary ---
Author Organization [facility] Address [address] [place] [address] Care Team Providers Care Professional Development Instructor Name Role Phone Unavailable Primary Care Provider Unavailabl e Source Comments [facility],non-[facility] Affiliates and Associated Physician Practices is amultiple site organization consisting of ambulatory clinics and hospital sitesin [place], [place], [place] and [place]. This disclosure is being madepursuant to the Care Everywhere program and may not contain all information available regarding this patient. Last updated 18.[facility] Social History Tobacco Use Types Packs/Day Years Used Date Smoking Tobacco: Never Assessed Sex and Gender Information Value Date Recorded Sex Assigned at Not on file Gender Identity Not on file Sexual Orientation Not on file Plan of Treatment Not on file
--- OUTSIDE RECORDS SUMMARY | 2024-09-23 08:43 | XMS_ITS | Encounter Summary ---
Author Organization [facility] Address [address] [place] [address] Phone Care Team Providers Care Dictaphone Operator Name Role Phone Ila Kwan APRN, FORESTRY SCIENTIST Primary Care Provider Arsenio Mendes Primary Care Provider [phone] Reason for Visit * Reason Comments Medication Refill Encounter Details Date Type Department Care Team (Late st Contact Info) Description 11/11/2022 Refill [facility] - Primary Care - [address] [place] [address] Erika Rowe APRN, FORESTRY SCIENTIST [address] [place] [address] Medication Refill Social History Tobacco [...] file Not on file Not on file COVID-19 Exposure Response Date Recorded In the last 10 days, have yo u been in contact with someone who was confirmed or suspected to have Coronavirus/COVID-19? No / Unsure 10/24/2022 11:01 AM CDT documented as of this encounter Miscellaneous Notes * Telephone Encounter - Arsenio Mendes PAC - 11/11/2022 3:39 PM CDT Rx request approved. * Telephone Encounter - Wendy Ngo RN - 11/11/2022 10:43 AM CDT Per nursing clinical judgement, provider to review and approve the medication(s) order(s) if appropriate. Requested Prescriptions Pending Prescriptions Disp Refills fluticasone (FLONASE) 50 MCG/ACT Suspension [Pharmacy Med Name: FLUTICASONE PROP 50 MCG SPRAY] 16 mL 1 Sig: SPRAY 1-2 SPRAYS IN EACH NOSTRIL EVERY DAY DIRECTED Nasal Steroids Protocol Passed - 11/11/2022 12:03 AM Passed - Visit with relevant provider in past 12 months or upcoming 90 days Recent Visits Date Type Provider Dept 10/24/22 Office Visit Arsenio Mendes, PAC [address] 10/15/22 Office Visit Ila Kwan APRN, FORESTRY SCIENTIST [address] 09/27/22 Office Visit Arsenio Mendes PAC [address] 09/13/22 Office Visit Erika Rowe APRN, FORESTRY SCIENTIST [address] 05/31/22 Office Visit Ila Kwan APRN, FORESTRY SCIENTIST [address] Showing recent visits within past 365 days and meeting all other requirements Future Appointments No visits were found meeting these conditions. Showing future appointments within next 90 days and meeting all other requirements documented in this encounter Plan of Treatment Upcoming Encounters Date Type Department Care Team (Late st Contact Info) Description 09/27/2024 8:45 AM CDT Office Visit [facility] - Primary Care - [address] [place] [address] Arsenio Mendes PAC [address] [place] [address] documented as of this encounter Visit Diagnoses Diagnosis Non-recurrent acute serous otitis media of right ear documented in this encounter Additional Health Concerns Assessment Noted Time PHQ-9 Depression Total Score: 1 05/15/20 21 9:00 AM CDT documented as of this encounter Care Teams Dictaphone Operator Relationship Specialty Start Date End Date Ila Kwan, SHIFT MANAGER, FORESTRY SCIENTIST [address] [place] [address] PCP - General Advanced Practice Nurse 04/02/18 3 Arsenio Mendes PAC [address] [place] [id number] PCP - General Physician Wood Patternmaker Apprentice 11/18/22 documented as of this encounter
--- OUTSIDE RECORDS SUMMARY | 2024-09-23 08:43 | XMS_ITS | Patient Health Summary ---
Author Organization [facility] Address [address] [place] [address] Care Team Providers Care Billet Bed Operator Name Role Phone Unavailable Primary Care Provider Unavailabl e Note from [facility],non-owned Affiliates and Associated Physician Practices is amultiple site organization consisting of ambulatory clinics and hospital sitesin [place], [place], [place] and [place]. This disclosure is being madepursuant to the Care Everywhere program and may not contain all information available regarding this patient. Last updated 18.[facility] Social History Tobacco Use Types Packs/Day Years Used Date Smoking Tobacco: Never Assessed Sex and Gender Information Value Date Recorded Sex Assigned at Not on file Gender Identity Not on file Sexual Orientation Not on file
--- OUTSIDE RECORDS SUMMARY | 2024-09-23 08:43 | XMS_ITS | Clinical Summary ---
Author Organization [facility] Address [address] [place] [address] Care Team Providers Care Assistant Field Hockey Coach Name Role Phone Unavailable Primary Care Provider Unavailabl e Source Comments [facility],non-owned Affiliates and Associated Physician Practices is amultiple site organization consisting of ambulatory clinics and hospital sitesin [place], [place], [place] and [place]. This disclosure is being madepursuant to the Care Everywhere program and may not contain all information available regarding this patient. Last updated 18.[facility] [employer] Social History Tobacco Use Types Packs/Day Years Used Date Smoking Tobacco: Never Assessed Sex and Gender Information Value Date Recorded Sex Assigned at Not on file Gender Identity Not on file Sexual Orientation Not on file Plan of Treatment Health Maintenance Due Date Last Done Comments PAP SMEAR 1990 HIV SCREENING 2005 HEPATITIS C SCREENING 12/07/2008 DTAP/TDAP/TD VACCINES (1 - Tdap) 2009 HEPATITIS B VACCINE (1 of 3 - 19+ 3-dose series) 2009 COVID-19 VACCINE ( - 2023-2 5 season) 2024 INFLUENZA VACCINE (#1) 2024 DEPRESSION SCREENING 07/14/2024 ZOSTER VACCINE (1 of 2) 2040 HIB VACCINE Aged Out No longer eligi ble based on patient's age to complete this topic HPV VACCINE Aged Out No longer eligi ble based on patient's age to complete this topic MENINGOCOCCAL (Group B) VACC INE SHARED DECISION-MAKING Aged Out No longer eligibl e based on patient's age to complete this topic MENINGOCOCCAL GROUPS A/C/Y/W VACCINE Aged Out No longer eligible b ased on patient's age to complete this topic PNEUMOCOCCAL VACCINE Aged Out No long er eligible based on patient's age to complete this topic
--- OUTSIDE RECORDS SUMMARY | 2024-09-23 08:43 | XMS_ITS | Encounter Summary ---
Author Organization [facility] Address [address] [place] [address] Phone Care Team Providers Care Back Office Medical Assistant Name Role Phone Arsenio Mendes Primary Care Provider Reason for Visit * Reason Comments Medication Refill Encounter Details Date Type Department Care Team (Late st Contact Info) Description 01/27/2024 Refill [facility] - Primary Care - [address] [place] [address] Arsenio Mendes PAC [address] [place] [address] Medication Refill Social History Tobacco Use Types Packs/Day Years Used Date Smoking Tobacco: Every Day Cigarettes 1 7 Smokeless Tobacco: Never Alcohol Use Standard Drinks/Week Comments Yes 0 (1 standard drink = 0.6 oz pur e alcohol) Very rarely [facility] Utilities Answer Date Recorded In the past 12 months has [employer], gas, oil, or water [employer] threatened to shut off services in your home? No 07/25/2023 Social Connection and Isolat ion Panel [NHANES] Answer Date Recorded In a typical week, how many times do you talk on the phone with family, friends, or neighbors? More than three times a week 07/25/2023 How often do you get togethe r with friends or relatives? Never 07/25/2023 How often do you attend [facility] or anabaptist services? More than 4 times per year 07/25/2023 Do you belong to any clubs o r organizations such as rastafari groups, unions, fraternal or athletic groups, or [...] Score - Questions 1-9 0 07/0 07/2023 [facility] [place] [facility] Occupat ional Health - Occupational Stress [...] place to sleep or slept in a correction (including now)? No 07/25/2023 Education Answer Date [...] encounter Miscellaneous Notes * Telephone Encounter - Klaus Arrington RN - 01/27/2024 10:36 AM CDT Refill requested too soon. documented in this encounter Plan of Treatment Upcoming Encounters Date Type Department Care Team (Late st Contact Info) Description 09/27/2024 8:45 AM CDT Office Visit [facility] - Primary Care - [address] [place] [address] Arsenio Mendes PAC [address] [place] [address] documented as of this encounter Visit Diagnoses Diagnosis Generalized anxiety disorder Current mild episode of major depressive disorder, unspecified whether recurrent (HCC) documented in this encounter Additional Health Concerns Assessment Noted Time PHQ-9 Depression Total Score: 0 01/12/20 24 3:30 PM CDT documented as of this encounter Care Teams Back Office Medical Assistant Relationship Specialty Start Date End Date Arsenio Mendes PAC [address] [place] [id number] PCP - General Physician Window Glass Cutter Off 11/18/22 documented as of this encounter
--- OUTSIDE RECORDS SUMMARY | 2024-09-23 08:44 | XMS_ITS | Clinical Summary ---
Author Organization [facility] Address [address] [place] [address] Care Team Providers Care Filer Metal Patterns Name Role Phone Arsenio Mendes Primary Care Provider Allergies Active Allergy Reactions Criticality Noted Date Comments Wtlkbszw-Aceqxzxchcz-Opfafbgpc Itching Low 01/27 Fluoxetine Hives Medium 07/05/2023 Medications vit no.165-otua-vej ic ( ONE DAILY) 27 mg iron- 800 mcg tablet 0 0 5 Active Additional Information Patient not taking.Reported on 02/14/2023 venlafaxine XR (EFFEXOR-XR) 150 mg 24 hr capsule Take 150 mg by mouth. 8 Active albuterol HFA (PROVENTIL HFA,VENTOLIN HFA,PROAIR HFA) 90 mcg/actuation inhaler Inhale 2 puffs every 4 (four) hours as needed for wheezing 1 each 1 Active Additional Information Patient not taking.Reported on 02/14/2023 busPIRone (BUSPAR) 10 mg tablet Take 1 tablet (10 mg total) by mouth 3 (three) times a day 3 Active fluticasone propionate (FLONASE) 50 mcg/actuation nasal spray Administer 1 spray into each nostril daily 3 Active loratadine (CLARITIN) 10 mg tablet Take 1 tablet (10 mg total) by mouth daily 9 Active phentermine (ADIPEX-P) 37.5 mg tablet Take 1 tablet (37.5 mg total) by mouth 3 Active risperiDONE (RisperDAL) 1 mg tablet Take 1 tablet (1 mg total) by mouth 2 (two) times a day 3 Active Active Problems Problem Noted Date Diagnosed Date 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 Followed by Flonase 2 sprays into each nostril while looking down over the sink, do not sniff in or blow nose after use for at least 30 minutes daily Pneumothorax 12/18/2014 Overview (10/18/2016): Pneumothorax Immunizations Immunization Administration Dates Next Due Pneumococcal, Unspecified 11/03/2013 Surgical History Surgery Date Site/Laterality Comments OTHER SURGICAL HISTORY Placement Right Side Pneumocath TUBAL LIGATION Medical History Medical History Date Comments Hx Other Medical 2 bel hs; Comments: GDS 01/05/2015 - Family History Medical History Relation Name Comments Diabetes Other Diabetes [facility]; Relation Name Status Comments Other Social History Tobacco Use Types Packs/Day Years Used Date Smoking Tobacco: Every Day Cigarettes Smokeless Tobacco: Never Tobacco Cessation:Ready to Q uit: Not Asked; Counseling Given: Not Answered Alcohol Use Standard Drinks/Week Comments No 0 (1 standard drink = 0.6 oz pur e alcohol) Personal Safety Answer Date Recorded Have you ever been in or are you currently in a harmful physical or emotional relationship or is someone making you feel afraid or unsafe? Denies 07/05/2023 Comments No Sex and Gender Information Value Date Recorded Sex Assigned at Not on file Legal Sex Female 3:42 AM NUT PROCESSING SUPERVISOR Gender Identity Not on file Sexual Orientation Not on file Obstetrics History Last Filed Vital Signs Vital Sign Reading Time Taken Comments Blood Pressure 122/85 07/05/2023 10:40 PM NUT PROCESSING SUPERVISOR Pulse 131 07/05/2023 10:40 PM NUT PROCESSING SUPERVISOR Temperature 36.5 C (97.7 F) 07/05/2023 10:39 PM NUT PROCESSING SUPERVISOR Respiratory Rate 17 07/05/2023 10:40 PM NUT PROCESSING SUPERVISOR Oxygen Saturation 99% 07/05/2023 10:40 PM NUT PROCESSING SUPERVISOR Inhaled Oxygen Concentration - - Weight 74.8 kg (165 lb) 07/05/2023 10:40 PM NUT PROCESSING SUPERVISOR Height 160 cm (5' 3 ) 07/05/2023 10:40 PM NUT PROCESSING SUPERVISOR Body Mass Index 29.23 07/05/2023 10:40 PM NUT PROCESSING SUPERVISOR Plan of Treatment Health Maintenance Due Date Last Done Comments Cervical Cancer Screening 1990 Depression Screening 1990 Hepatitis C Screening 1990 Varicella Vaccines (2 of 2 - 2-dose childhood series) 04/13/1996 01/20/1996 DTaP/Tdap/Td Vaccine (6 - Tdap) 04/16/2005 04/15/2005, 10/30/1995, 06/22/1992, Additional history exists Regular Well Visit/Exam 18-64 2008 Pneumococcal vaccine <65 (2 of 2 - PPSV23) 09/08/2013 11/03/2013, 07/14/2013 Covid-19 Vaccine ( season) 2024 11/03/2020, 10/06/2020 Influenza Vaccine (#1) 2024 04/25/2015 Hepatitis B Screening Completed 03/29/1997 , 10/14/1996, 09/13/1996 HPV Vaccines Aged Out No longer eligi ble based on patient's age to complete this topic Insurance [facility] Care Teams Filer Metal Patterns Relationship Specialty Start Date End Date Arsenio Mendes PA [address] [place] [address] PCP - General Orthopedic Surgery 07/05/23
--- OUTSIDE RECORDS SUMMARY | 2024-09-23 08:44 | XMS_ITS | Referral Summary ---
Author Organization [facility] Address [address] [place] [address] Care Team Providers Care Licensing Worker Name Role Phone Arsenio Mendes Primary Care Provider [phone] Allergies Active Allergy Reactions Criticality Noted Date Comments Fidxzppy-Olamqfrdyce-Hdhzppisa Itching Low 01/27 Fluoxetine Hives Medium 07/05/2023 Medications vit no.668-deer-olj ic ( ONE DAILY) 27 mg iron- [...] Plan (02/14/2023 3:19 PM CDT): Hearing test [facility] Seasonal allergic rhinitis due to pollen 023 Assessment & Plan (02/14/2023 3:19 PM CDT): Blood allergy testing - call with results Nasal saline spray (Simply saline, Little Remedies, [place], [place]) 2 second sprays or 2 squeezes into [...] Administration Dates Next Due Pneumococcal, Unspecified 11/03/2013 Social History Tobacco Use Types Packs/Day Years [...] on file Legal Sex Female 3:42 AM PHARMACEUTICAL LABORATORY TECHNICIAN Gender Identity Not on file Sexual Orientation Not on file Last Filed Vital Signs Vital Sign Reading Time Taken Comments Blood Pressure 122/85 07/05/2023 10:40 PM PHARMACEUTICAL LABORATORY TECHNICIAN Pulse 131 07/05/2023 10:40 PM PHARMACEUTICAL LABORATORY TECHNICIAN Temperature 36.5 C (97.7 F) 07/05/2023 10:39 PM PHARMACEUTICAL LABORATORY TECHNICIAN Respiratory Rate 17 07/05/2023 10:40 PM PHARMACEUTICAL LABORATORY TECHNICIAN Oxygen Saturation 99% 07/05/2023 10:40 PM PHARMACEUTICAL LABORATORY TECHNICIAN Inhaled Oxygen Concentration - - Weight 74.8 kg (165 lb) 07/05/2023 10:40 PM PHARMACEUTICAL LABORATORY TECHNICIAN Height 160 cm (5' 3 ) 07/05/2023 10:40 PM PHARMACEUTICAL LABORATORY TECHNICIAN Body Mass Index 29.23 07/05/2023 10:40 PM PHARMACEUTICAL LABORATORY TECHNICIAN Plan of Treatment Not on file Insurance [facility] [place] [address] [place] [address] [facility] Care Teams Licensing Worker Relationship Specialty Start Date End Date Arsenio Mendes PA [address] [place] [phone] PCP - General Orthopedic Surgery 07/05/23
== END 2024-09-23 08:48 | disposition home or self-care (01) ==
PROVIDERS: Emergency Provider Nurse Practitioner
DX: S86.112A Strain of other muscle(s) and tendon(s) of posterior muscle group at lower leg level, left leg, initial encounter (principal); X58.XXXA Exposure to other specified factors, initial encounter; F17.210 Nicotine dependence, cigarettes, uncomplicated
CPT/HCPCS: 99213; G0463

== ENCOUNTER 2025-04-07 16:33 | Emergency (ER) | payer OTHER, SELFPAY ==
--- OUTSIDE RECORDS SUMMARY | 2008-09-10 19:00 | XMS_ITS | Continuity of Care Document ---
Author Organization [facility] Address [address] [place] [id number] Phone Care Team Providers Care Team Facilitator Name Role Phone CONV, [facility] Unavailable Unavailable Advance Directives Directive Yes / No Effective Date File Name No Information Encounters Encounter Description Practice Location Reason(s) For Visit Diagnoses Date Provider Providers Copied on Encounter [facility] /[facility], [address] [place] [address], [id number], tel:[phone] Z [facility]D CONV No Information CONV [facility]. [address] [place] [address], [id number], [place]. Family History Family Member Type Diagnosis Age At Onset No Information Immunizations Vaccine Date Status Comments TD, TETANUS-DIPHTHERIA administered Note: RA ; Source: New Immunization Record HEP B VACCINE PED/ADOL administered Note: RA ; Source: New Immunization Record HEP B VACCINE PED/ADOL administered Note: RA ; Source: New Immunization Record DTP administered Source: New Imm unization Record [id number], PED/ADL administered Source: New Immuniza tion Record ORAL POLIO administered Source: New Imm unization Record DTP administered Source: New Imm unization Record ORAL POLIO administered Source: New Imm unization Record HIB 3 DOSE SERIES administered Source: Ne w Immunization Record [id number], PED/ADL administered Source: New Immuniza tion Record HIB 3 DOSE SERIES administered Source: Ne w Immunization Record DTP administered Source: New Imm unization Record HIB 3 DOSE SERIES administered Source: Ne w Immunization Record DTP administered Source: New Imm unization Record ORAL POLIO administered Source: New Imm unization Record HIB 3 DOSE SERIES administered Source: Ne w Immunization Record DTP administered Source: New Imm unization Record ORAL POLIO administered Source: New Imm unization Record Payers Payer name Insurance type Covered libertarian ID Authoriza tion(s) No Information Social History Type Description Quantity Date Captured Comments Sex Female Smoking Status No Information Chief Complaint And Reason For Visit No Information History Of Present Illness Encounter Date Complaint History Of Prese nt Illness No Information Instructions Date Instruction Additional Infor mation No Information Assessments Type Assessment Date No Information Patient Care Teams Name Effective Dates (start - stop) Status Members No Information
--- OUTSIDE RECORDS SUMMARY | 2008-09-10 19:00 | XMS_ITS | Continuity of Care Document ---
Author Organization [facility] Address [address] [place] [id number] Phone Care Team Providers Care Aircraft Riveter Name Role Phone CONV, [facility] Unavailable Unavailable Advance Directives Directive Yes / No Effective Date File Name No Information Encounters Encounter Description Practice Location Reason(s) For Visit Diagnoses Date Provider Providers Copied on Encounter [facility], [address] [place] [address], [address], tel:[phone] Z [facility] CONV No Information CONV [facility]. [address] [place] [address], [id number], [place]. Family History Family Member Type Diagnosis Age At Onset No Information Immunizations Vaccine Date Status Comments TD, TETANUS-DIPHTHERIA administered Note: RA ; Source: New Immunization Record HEP B VACCINE PED/ADOL administered Note: RA ; Source: New Immunization Record HEP B VACCINE PED/ADOL administered Note: RA ; Source: New Immunization Record DTP administered Source: New Imm unization Record [id number], PED/ADL administered Source: New Immuniza tion Record ORAL POLIO administered Source: New Imm unization Record DTP administered Source: New Imm unization Record ORAL POLIO administered Source: New Imm unization Record HIB 3 DOSE SERIES administered Source: Ne w Immunization Record [id number], PED/ADL administered Source: New Immuniza tion Record [...] Record Payers Payer name Insurance type Covered green party ID Authoriza tion(s) No Information Social History Type Description Quantity Date Captured Comments Sex Female Smoking Status No Information Sexual Orientation Straight or heterosexual Aug Chief Complaint And Reason For Visit No Information History Of Present Illness Encounter Date Complaint History Of Prese nt Illness No Information Instructions Date Instruction Additional Infor mation No Information Assessments Type Assessment Date No Information Patient Care Teams Name Effective Dates (start - stop) Status Members No Information
--- NOTE | ~2025-04-07 | XR_ITS ---
EXAMINATION: XR elbow LT min 3V, 04/07/2025 17:10 CDT HISTORY: left elbow pain COMPARISON: No comparisons available. Findings: No acute fracture or malalignment. No significant degenerative changes. Soft tissues unremarkable. Impression: No acute fracture or malalignment. Reviewed, dictated and finalized at location P. Impression: No acute fracture or malalignment.
[2025-04-07 16:40] VITALS: BP 112/87; PULSE 100; RESP 20; TEMP 36.9; O2SAT 100
--- NOTE | 2025-04-07 17:03 | ED_ITS ---
HPI - General Adult General Chief complaint: Extremity Problem,Nontraumatic Stated complaint: left elbow pain Time Seen by Provider: 04/07/25 17:08 Source: patient, RN notes reviewed and old records reviewed Mode of arrival: ambulatory Limitations: no limitations History of Present Illness HPI narrative: 34-year-old female who presents to [facility] with complaints left elbow pain at olecranon area for the past 4 months. Patient reports that she saw her primary care provider recently and he put her on some steroids and had her wear band on her arm stating it was tennis elbow. 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 She reports that she completed the steroids as ordered with no improvement in her symptoms. Patient reports no know injury to left elbow prior to pain starting. Patient reports that she has used ice and heat and has been wearing band on her arm as directed and has taken Ibuprofen and also Tylenol with no help. MD complaint: left elbow pain Onset (ago): month(s) (4) Location: left (elbow) and upper extremity Severity scale (1-10): 5 Quality: other (throbbing) Treatments prior to arrival: NSAID and other (Tylenol ice and heat and band for tennis elbow ) Related Data Home Medications ?Medication ?Instructions ?Recorded ?Confirmed ?Last Taken ?Type dextroamphetamine-amphetamine ER PO 09/09/23 Unknown History 20 mg 24hr capsule,extend release methylphenidate HCl 20 mg tablet mg 09/23/24 Unknown History methylphenidate HCl 10 mg tablet mg 04/07/25 Unknown History venlafaxine 75 mg capsule,extended mg PO 04/07/25 Unk nown History release 24 hr Allergies Allergy/AdvReac Type Severity Reaction Status Date / Time bacitracin Allergy Mild rash Verified 04/07/25 17:13 neomycin Allergy Mild rash Verified 04/07/25 17:13 polymyxin B Allergy Mild rash Verified 04/07/25 17:13 Review of Systems Review of Systems: CONSTITUTIONAL: Denies fever, chills, or sweats. EYES: Denies visual changes, redness, or discharge. ENT: Denies rhinorrhea, congestion, sore throat, or otalgia. CARDIOVASCULAR: Denies chest pain, palpitations, or edema. RESPIRATORY: Denies cough or dyspnea. GASTROINTESTINAL: Denies abdominal pain, nausea, vomiting, or diarrhea. GENITOURINARY: Denies dysuria or hematuria. SKIN: Denies rash or itching. MUSCULOSKELETAL: Denies back pain, positive for left elbow pain at olecranon area reports no radiation down arm, or myalgia. NEUROLOGIC: Denies headache, numbness, or weakness. PSYCHIATRIC: Positive for history of anxiety or depression. All systems reviewed & are unremarkable except as noted in HPI and below PMFSH Past Medical History Medical History ADHD (attention deficit hyperactivity disorder) Cough Anxiety Surgical History Surgical History H/O LEEP History of salpingectomy Family History Family History Mother Family history non-contributory Social History Social History Smoking packs per day: 0.5 Smoking cigarettes per day: 10.0 Smoking status: Current every day smoker Alcohol intake: never Substance use: never Living arrangements: with family Gender identity (if verbalized by the patient): Female Sexual Orientation (if Verbalized by the Patient): Straight or Heterosexual Spiritual care concerns: No Comments At time of signature, agree with nursing past medical, surgical, social and family history. There is no relevant family history pertinent to the presenting complaint Exam Narrative: GENERAL: Well-appearing, well-nourished, and in no acute distress. HEAD: Normocephalic, atraumatic. EYES: PERRLA and EOMI. ENT: Nares clear, no rhinorrhea or epistaxis. Mucous membranes moist. NECK: Supple.no lymphadenopathy CHEST: Clear to auscultation. No respiratory distress. SAO2 100% on room air HEART: Regular rate and rhythm. No murmur heard. Normal peripheral pulses. ABDOMEN: Soft, nontender, nondistended, normal active bowel sounds. EXTREMITIES: Normal range of motion. No edema noted reports pain at the olecranon area of left elbow with no radiation of pain or tingling or numbness down arm, denies any known injury. Patient has full mobility of left elbow with no swelling is tender to palpation at elbow and states some increased discomfort with movement. SKIN: Warm, dry, no rash. NEURO: No focal deficits. Alert and oriented x3. Course Course Emergency Course: Patient is aware of diagnosis, understands and agrees to treatment plan.? Anticipatory guidance given.? Patient agrees to follow-up as directed and is aware of reasons to seek care at the emergency department. Portions of this record may have been created with voice recognition software Level of Care: Express Care Visit Vital Signs Vital signs: Vital Signs Temperature 36.9 C 04/07/25 16:40 Pulse Rate 04/07/25 16:40 Respiratory Rate 04/07/25 16:40 Blood Pressure 112/87 04/07/25 16:40 Pulse Oximetry 04/07/25 16:40 Oxygen Delivery Room Air 04/07/25 16:40 Temperature 36.9 C 04/07/25 16:40 Pulse Rate 04/07/25 16:40 Respiratory Rate 04/07/25 16:40 Blood Pressure 112/87 04/07/25 16:40 Pulse Oximetry 04/07/25 16:40 Oxygen Delivery Room Air 04/07/25 16:40 Reviewed Medical Decision Making MDM Narrative Medical decision making narrative: Exam findings and imaging show no acute concerns or changes; patient is non- toxic appearing and is in no distress.? Patient is appropriate for outpatient treatment and follow-up Differential Diagnosis Differential Diagnosis: left elbow pain, tendonitis, ulnar nerve inflammation Medical Records Medical records reviewed: Yes I reviewed the external patient's medical records. Vital Signs Vital Signs: Vital Signs Temperature 36.9 C 04/07/25 16:40 Pulse Rate 04/07/25 16:40 Respiratory Rate 04/07/25 16:40 Blood Pressure 112/87 04/07/25 16:40 Pulse Oximetry 04/07/25 16:40 Oxygen Delivery Room Air 04/07/25 16:40 Temperature 36.9 C 04/07/25 16:40 Pulse Rate 04/07/25 16:40 Respiratory Rate 04/07/25 16:40 Blood Pressure 112/87 04/07/25 16:40 Pulse Oximetry 04/07/25 16:40 Oxygen Delivery Room Air 04/07/25 16:40 reviewed Imaging Data Attestation: I personally reviewed and interpreted this imaging study as follows: My impression: no fracture or malalignment, soft tissues unremarkable, no significant degenerative changes Radiologist's impression: [facility] [address] [place] [address] XRay Report Signed Patient: Barbie Fu : 1990 MR#: [id number] Age: 34 Acct:[id number] Loc: [facility] ADM Date: 04/07/25Attending Dr: Ordering Physician: Jaida Manning APRN Date of Service: 04/07/25 Procedure(s): XR elbow LT min 3V Accession Number(s): [id number] cc: Jaida Manning APRN~ EXAMINATION: XR elbow LT min 3V, 04/07/2025 17:10 CDT HISTORY: left elbow pain COMPARISON: No comparisons available. Findings: No acute fracture or malalignment. No significant degenerative changes. Soft tissues unremarkable. Impression: No acute fracture or malalignment. Reviewed, dictated and finalized at location P. Please be advised this is a medical document. It is intended for tzro-bz-gtqj communication. It is written in medical language and may contain unfamiliar abbreviations or verbiage. Medical documents are intended to carry relevant information, facts as evident, and the clinical opinion of the practitioner at the time of the encounter. This report may have been done utilizing a voice recognition system. Attempts have been made to correct errors. However, there may be uncorrected grammatical, spelling, and recognition errors present. The file time of this note does not necessarily represent the time of service. Dictated By: Roberto Majano MD 04/07/25 1729 Signed By: <Electronically signed by Roberto Majano MD in OV> Critical Care Time Critical Care Time Critical Care Time: No Discharge Plan Discharge Clinical Impression: Elbow pain, left Patient Disposition: Home Condition: Stable Instructions: Antibiotic Form, Arthralgia (ED) Additional Instructions: Elastic wrap or orthopedic splint compression splint as directed for comfort for the next 5-7 days Tylenol for pain per package insert Meloxicam daily as ordered do not take any Ibuprofen while taking this medication Follow-up with orthopedic surgeon if continued problems Follow-up with PCP if further problems or concerns Ice to the area 20-30 minutes 4-6 times a day Elevate above heart If your symptoms persist, change or worsen significantly before you can contact your personal physician then please, without delay, go to the emergency department for further evaluation. Follow-up with PCP in 7-10 days or sooner if needed Patient Language: Lithuanian Prescriptions: New meloxicam 7.5 mg tablet 7.5 mg PO DAILY Qty: 30 0RF No Action methylphenidate HCl 20 mg tablet venlafaxine 75 mg capsule,extended release 24hr PO methylphenidate HCl 10 mg tablet dextroamphetamine-amphetamine 20 mg capsule,extended release 24hr PO Follow-up/Referrals: PHYSICIAN NOT ON STAFF,NONSTAFF [Primary Care Provider] Time of Disposition: 17:59 Quality [place] Coma Scale Eyes: Open Verbal: Oriented and Alert Motor: Follows Commands [place] Coma Total Score: 15
--- OUTSIDE RECORDS SUMMARY | 2025-04-07 17:43 | XMS_ITS | Encounter Summary ---
Author Organization [facility] Address [address] [place] [address] Phone Care Team Providers Care Linking Machine Operator Name Role Phone Arsenio Mendes [facility] Primary Care Provider Reason for Visit * Reason Comments Medication Refill Encounter Details Date Type Department Care Team (Late st Contact Info) Description 01/08/2023 Refill [facility] - Primary Care - [place] [address] [place] [phone] Ila Kwan, OIL TRUCK DRIVER, PLASTER MACHINE TENDER [address] [place] [address] Medication Refill Social History Tobacco [...] Office Visit Arsenio Mendes, PAC [facility] [place] [facility] 10/24/22 Office Visit Arsenio Mendes, PAC [facility] [place] [facility] 10/15/22 Office Visit Ila Kwan APRN, PLASTER MACHINE TENDER [facility]22 Office Visit Erika Rowe APRN, PLASTER MACHINE TENDER [facility] [place] [facility] 05/31/22 Office Visit Ila Kwan APRN, PLASTER MACHINE TENDER [facility] Showing recent visits within past 365 days and meeting all other requirements Future Appointments Date Type Provider Dept 01/20/23 Appointment [facility] Show[facility] future appointments within next 90 days [...] [facility] 10/15/22 Office Visit Ila Kwan APRN, PLASTER MACHINE TENDER [facility] [address] [facility] 09/27/22 Office Visit Arsenio Mendes, PAC [facility] [address] [facility] 09/13/22 Office Visit Erika Rowe APRN, PLASTER MACHINE TENDER [facility] [address] [facility] Showing recent visits [...] Care Team (Late st Contact Info) Description 05/05/2025 9:00 AM CDT Office Visit [facility] - Primary Care - [address] [place] [phone] Arsenio Mendes PAC [address] [place] [address] documented as of this encounter Visit Diagnoses Not on filedocumented in this encounter Additional Health Concerns Assessment Noted Time PHQ-9 Depression Total Score: 1 05/15/20 21 9:00 AM CDT documented as of this encounter Care Teams Linking Machine Operator Relationship Specialty Start Date End Date Arsenio Mendes PAC [address] [place] [address] PCP - General Physician Webbing Weaver 11/18/22 documented as of this encounter
--- OUTSIDE RECORDS SUMMARY | 2025-04-07 17:43 | XMS_ITS | Clinical Summary ---
Author Organization [facility] Address [address] [place] [address] Care Team Providers Care Broadcast Systems Engineer Name Role Phone Arsenio Mendes Primary Care Provider [phone] Allergies Active Allergy Reactions Criticality Noted Date Comments Honxecen-Elflyomjhvo-Eavssrmna Itching Low 01/27 Fluoxetine Hives Medium 07/05/2023 Medications vit no.837-nalk-vza ic ( ONE DAILY) 27 mg iron- [...] Plan (02/14/2023 3:19 PM CDT): Hearing test [facility] Seasonal allergic rhinitis due to pollen 023 Assessment & Plan (02/14/2023 3:19 PM CDT): Blood allergy testing - call with results Nasal saline spray (Simply saline, Little Remedies, [place], [place]) 2 second sprays or 2 squeezes into [...] History Date Comments Hx Other Medical 2 [facility]; Comments: GDS 01/05/2015 - Family History Medical History Relation Name Comments Diabetes Other Diabetes [facility]; Relation Name Status Comments Other Social [...] on file Legal Sex Female 3:42 AM WARM IN WORKER Gender Identity Not on file Sexual Orientation Not on file Obstetrics History Last Filed Vital Signs Vital Sign Reading Time Taken Comments Blood Pressure 122/85 07/05/2023 10:40 PM WARM IN WORKER Pulse 131 07/05/2023 10:40 PM WARM IN WORKER Temperature 36.5 C (97.7 F) 07/05/2023 10:39 PM WARM IN WORKER Respiratory Rate 17 07/05/2023 10:40 PM WARM IN WORKER Oxygen Saturation 99% 07/05/2023 10:40 PM WARM IN WORKER Inhaled Oxygen Concentration - - Weight 74.8 kg (165 lb) 07/05/2023 10:40 PM WARM IN WORKER Height 160 cm (5' 3) 07/05/2023 10:40 PM WARM IN WORKER Body Mass Index 29.23 07/05/2023 10:40 PM WARM IN WORKER Plan of Treatment Health Maintenance Due Date Last Done Comments Cervical Cancer Screening 1990 Depression Screening 1990 Hepatitis C Screening 1990 Varicella Vaccines (2 of 2 - 2-dose childhood series) 04/13/1996 01/20/1996 DTaP/Tdap/Td Vaccine (6 - Tdap) 04/16/2005 04/15/2005, 10/30/1995, 06/22/1992, Additional history exists Regular Well Visit/Exam 18-64 2008 Pneumococcal vaccine <65 (2 of 2 - PPSV23, PCV20, or PCV21) 09/08/2013 11/03/2013, 07/14/2013 HPV Vaccines (1 - 3-dose SCD M series) 2017 Covid-19 Vaccine (3 - 2024-2 6 season) 2025 11/03/2020, 10/06/2020 Influenza Vaccine (#1) 2025 04/25/2015 Hepatitis B Screening Completed 03/29/1997 , 10/14/1996, 09/13/1996 Insurance [facility] Care Teams Broadcast Systems Engineer Relationship Specialty Start Date End Date Arsenio Mendes PA [address] [place] [address] PCP - General Orthopedic Surgery 07/05/23
--- OUTSIDE RECORDS SUMMARY | 2025-04-07 17:43 | XMS_ITS | Encounter Summary ---
Author Organization [facility] Address [address] [place] [address] Phone Care Team Providers Care Survey Manager Name Role Phone Arsenio Mendes Primary Care Provider Reason for Visit * Reason Comments Medication Refill Encounter Details Date Type Department Care Team (Late st Contact Info) Description 01/27/2024 Refill [facility] - Primary Care - [place] [address] [place] [address] Arsenio Mendes PAC [address] [place] [address] Medication Refill Social History Tobacco Use Types Packs/Day Years Used Date Smoking Tobacco: Every Day Cigarettes 1 7 Smokeless Tobacco: Never Alcohol Use Standard Drinks/Week Comments Yes 0 (1 standard drink = 0.6 oz pur e alcohol) Very rarely [facility] Utilities Answer Date Recorded In the past 12 months has [employer], gas, oil, or water [employer] threatened to shut off services in your home? No 07/25/2023 Social Connection and Isolation Panel Answer Date Recorded In a typical week, how many times do you talk on the phone with family, friends, or neighbors? More than three times a week 07/25/2023 How often do you get togethe r with friends or relatives? Never 07/25/2023 How often do you attend [facility] or pentecostal services? More than 4 times per year 07/25/2023 Do you belong to any clubs o r organizations such as pentecostal groups, unions, fraternal or athletic groups, or [...] Score - Questions 1-9 0 07/0 07/2023 [facility] - Occupational Stress Questionnaire Answer Date Recorded [...] place to sleep or slept in a care home (including now)? No 07/25/2023 Education Answer Date [...] Description 05/05/2025 9:00 AM CDT Office Visit [facility] - Primary Care - [place] [address] [place] [address] Arsenio Mendes PAC [address] [place] [phone] documented as of this encounter Visit Diagnoses Diagnosis Generalized anxiety disorder Current mild episode of major depressive disorder, unspecified whether recurrent documented in this encounter Additional Health Concerns Assessment Noted Time PHQ-9 Depression Total Score: 0 01/12/20 24 3:30 PM CDT documented as of this encounter Care Teams Survey Manager Relationship Specialty Start Date End Date Arsenio Mendes PAC [address] [place] [phone] PCP - General Physician Mold Filling Operator 11/18/22 documented as of this encounter
--- OUTSIDE RECORDS SUMMARY | 2025-04-07 17:43 | XMS_ITS | Clinical Summary ---
Author Organization [facility] Address [address] [place] [address] Care Team Providers Care Room Server Name Role Phone Unavailable Primary Care Provider Unavailabl e Source Comments [facility],non-owned Affiliates and Associated Physician Practices is amultiple site organization consisting of ambulatory clinics and hospital sitesin [place], [place], [place] and [place]. This disclosure is being madepursuant to the Care Everywhere program and may not contain all information available regarding this patient. Last updated 18.[facility] [employer] Social History Tobacco Use Types Packs/Day Years Used Date Smoking Tobacco: Never Assessed Comments Unknown Sex and Gender Information Value Date Recorded Sex Assigned at Not on file Legal Sex Female 11:20 AM CDT Gender Identity Not on file Sexual Orientation Not on file Plan of Treatment Health Maintenance Due Date Last Done Comments HIV SCREENING 2005 HEPATITIS C SCREENING 12/07/2008 DTAP/TDAP/TD VACCINES (1 - Tdap) 2009 HEPATITIS B VACCINE (1 of 3 - 19+ 3-dose series) 2009 PAP SMEAR 12/13/2011 HPV VACCINE (1 - 3-dose SCDM series) 2017 DEPRESSION SCREENING 07/14/2024 COVID-19 VACCINE (1 - 2023-2 5 season) 2025 INFLUENZA VACCINE (#1) 2025 ZOSTER VACCINE (1 of 2) 2040 HIB [...] patient's age to complete this topic Insurance [place] [employer] [facility] [place] [address]
--- OUTSIDE RECORDS SUMMARY | 2025-04-07 17:43 | XMS_ITS | Encounter Summary ---
Author Organization [facility] Address [address] [place] [address] Phone Care Team Providers Care Remediation Technician Name Role Phone Ila Kwan APRN, SUPERVISOR COVERING AND LINING Primary Care Provider Arsenio Mendes Primary Care Provider Reason for Visit * Reason Comments Medication Refill Encounter Details Date Type Department Care Team (Late st Contact Info) Description 11/11/2022 Refill [facility] - Primary Care - [place] [address] [place] [address] Erika Rowe APRN, SUPERVISOR COVERING [employer] LINING [address] [place] [address] Medication Refill Social History Tobacco [...] request approved. * Telephone Encounter - Wendy Nog RN - 11/11/2022 10:43 AM CDT Per [...] Dept 10/24/22 Office Visit Arsenio Mendes, PAC [facility] [address] 10/15/22 Office Visit Ila Kwan APRN, SUPERVISOR COVERING AND LINING [address] 09/27/22 Office Visit Arsenio Mendes PAC [address] 09/13/22 Office Visit Erika Rowe APRN, SUPERVISOR COVERING [employer] LINING [address] 05/31/22 Office Visit Ila Kwan APRN, SUPERVISOR COVERING [employer] LINING [address] Showing recent visits within past 365 days and meeting all other requirements Future Appointments No visits were found meeting these conditions. Showing future appointments within next 90 days and meeting all other requirements documented in this encounter Plan of Treatment Upcoming Encounters Date Type Department Care Team (Late st Contact Info) Description 05/05/2025 9:00 AM CDT Office Visit [facility] - Primary Care - [place] [address] [place] [phone] Arsenio Mendes PAC [address] [place] [place] [phone] documented as of this encounter Visit Diagnoses Diagnosis Non-recurrent acute serous otitis media of right ear documented in this encounter Additional Health Concerns Assessment Noted Time PHQ-9 Depression Total Score: 1 05/15/20 21 9:00 AM CDT documented as of this encounter Care Teams Remediation Technician Relationship Specialty Start Date End Date Ila Kwan, BUSINESS SPECIALIST, SUPERVISOR [employer]ING [address] [place], [place] [id number] PCP - General Advanced Practice Nurse 04/02/18 3 Arsenio Mendes PAC [address] [place] [id number] PCP - General Physician Film Critic 11/18/22 documented as of this encounter
--- OUTSIDE RECORDS SUMMARY | 2025-04-07 17:43 | XMS_ITS | Clinical Summary ---
Author Organization [facility] Address [address] [place] [address] Phone Care Team Providers Care Staff Field Engineer Name Role Phone Arsenio Mendes Primary Care Provider Allergies Active Allergy Reactions Criticality Noted Date Comments Fluoxetine Hives Medium 07/05/2023 Neomycin-Bacitracin Zn-Polymyx Itching 01/27 Medications loratadine (CLARITIN) 10 MG Tablet Take 10 mg by mouth daily. 0 12/31/19 19 Active Sprintec 28 0.25-35 MG-MCG Tablet Take 1 Tablet by mouth daily. 12/11/19 24 Active Omeprazole 20 MG Tablet Delayed Response Take 1 Tablet by mouth daily. Active risperiDONE (RisperDAL) 2 MG TabletIndications :Generalized anxiety disorder,Current mild episode of major depressive disorder, unspecified whether recurrent Take 1 tablet by mouth twice daily 180 Tablet 09/06/19 25 Active busPIRone (BUSPAR) 10 MG Tablet Take 1 Tablet by mouth 3 times daily. 90 Tablet 02/29/20 25 Active venlafaxine (EFFEXOR-XR) 75 MG CAPSULE SR 24 HRIndications:Mod erate episode of recurrent major depressive disorder,Generali zed anxiety disorder Take 1 capsule by mouth once daily 90 Capsule 03/16/20 25 Active methylphenidate (RITALIN) 20 MG TabletIndications :ADHD (attention deficit hyperactivity disorder), combined type Take one tablet twice daily with 10mg dose for a total of 30mg twice daily. 60 Tablet 03/22/20 25 Active methylphenidate (RITALIN) 10 MG TabletIndications :ADHD (attention deficit hyperactivity disorder), combined type Take one tablet twice daily with the 20mg dose for a total of 30mg twice daily. 60 Tablet 03/22/20 25 Active predniSONE (DELTASONE) 10 MG TabletIndications :Lateral epicondylitis of left elbow Take 4 tab PO daily x 2 days, 3 tab PO daily x 2 days, 2 tab PO daily x 2 day, 1 tab PO daily x 2 days. 20 Tablet 03/23/20 25 Active venlafaxine (EFFEXOR-XR) 75 MG CAPSULE SR 24 HRIndications:Mod erate episode of recurrent major depressive disorder,Generali zed anxiety disorder Take 1 Capsule by mouth daily. 90 Capsule 11/17/19 25 025 Discontinued methylphenidate (RITALIN) 20 MG TabletIndications :ADHD (attention deficit hyperactivity disorder), combined type Take one tablet twice daily with 10mg dose for a total of 30mg twice daily. 60 Tablet 02/19/20 25 025 Discontinued(Re order) methylphenidate (RITALIN) 10 MG TabletIndications :ADHD (attention deficit hyperactivity disorder), combined type Take one tablet twice daily with the 20mg dose for a total of 30mg twice daily. 60 Tablet 02/19/20 25 025 Discontinued(Re order) Active Problems Problem Noted Date Diagnosed Date [...] Encounters Date Type Department Care Team Description 03/23/2025 9:00 AM CDT Office Visit [facility] [place] [address] Arsenio Mendes, PAC Lateral epicondylitis of left elbow (Primary Dx) Discharge Disposition: Discharged to home or Selfcare 03/23/2025 Travel 03/21/2025 MyChart RX Renewal [facility] [place] [address] [place] [address] Arsenio Mendes, PAC Medication Renewal Reviewed 03/16/2025 Refill [facility] - [place] [address] [place] [address] Arsenio Mendes, PAC Medication Refill 03/02/2025 Patient Outreach [facility] [place] [address] [place] [address] Arsenio Mendes, PAC 02/28/2025 MyChart RX Renewal [facility] [place] [address] [place] [address] Arsenio Mendes, PAC Medication Renewal Reviewed 02/18/2025 MyChart RX Renewal [facility] [place] [address] [facility] [place] [address] Arsenio Mendes, PAC Medication Renewal Reviewed 01/18/2025 MyChart RX Renewal [facility] [place] [address] [place] [address] Yeimi Morales, DISTRICT PLANT ENGINEER, CALL CENTER CONSULTANT Medication Renewal Reviewed from Last 3 Months [...] Smoking Tobacco: Every Day Cigarettes 1 10 Passive Smoke Exposure: Current Smokeless Tobacco: Never Tobacco Cessation:Ready to Q uit: No; Counseling Given: Yes Alcohol Use Standard Drinks/Week Comments Yes 2 (1 standard drink = 0.6 oz pur e alcohol) Very rarely [facility] Utilities Answer Date Recorded In the past 12 months has th e electric, gas, oil, or water company threatened to shut off services in your home? Patient declined 10/15/2024 Social Connection and Isolation Panel Answer Date Recorded In a typical week, how many times do you talk on the phone with family, friends, or neighbors? Patient declined 10/15/2024 How often do you get togethe r with friends or relatives? Patient declined 10/15/2024 How often do you attend taoism or uatsdin serv ices? Patient declined 10/15/2024 Do you belong to any clubs o r organizations such as taoism groups, unions, fraternal or athletic groups, or school groups? Patient declined 10/15/2024 How often do you attend meet ings of the clubs or organizations you belong to? Patient declined 10/15/2024 Are you , , di vorced, , never , or living with a partner? Patient declined 10/15/2024 AUDIT-C Answer Date Recorded Q1: How often do you have a drink containing alc ohol? Patient declined 10/15/2024 Q2: How many drinks containi ng alcohol do you have on a typical day when you are drinking? Patient declined 10/15/2024 Q3: How often do you have si x or more drinks on one occasion? Patient declined 10/15/2024 Overall Financial Resource Strain (CARDIA) Answe r Date Recorded How hard is it for you to pa y for the very basics like food, housing, medical care, and heating? Patient declined 10/15/2024 PHQ-2 Answer Date Recorded Total Score - Questions 1-9 0 07/0 07/2023 [facility] - Occupational Stress Questionnaire Answer Date Recorded Do you feel stress - tense, restless, nervous, or anxious, or unable to sleep at night because your mind is troubled all the time - these days? Patient declined 10/15/2024 Exercise Vital Sign Answer Date Recorde d On average, how many days pe r week do you engage in moderate to strenuous exercise (like a brisk walk)? Patient declined On average, how many minutes do you engage in exercise at this level? Patient declined 10/15/2024 Hunger Vital Sign Answer Date Recorded Within the past 12 months, y ou worried that your food would run out before you got the money to buy more. Patient declined Within the past 12 months, t he food you bought just didn't last and you didn't have money to get more. Patient declined 10/2024 PRAPARE - Transportation Answer Date Re corded In the past 12 months, has l ack of transportation kept you from medical appointments or from getting medications? Patient declined 10/15/2024 In the past 12 months, has l ack of transportation kept you from meetings, work, or from getting things needed for daily living? Patient declined 10/15/2024 Housing Stability Vital Sign Answer Ronny e [...] place to sleep or slept in a assisted (including now)? No 07/25/2023 Housing Stability Vital Sign Answer Ronny e Recorded In the last 12 months, was t here a time when you were not able to pay the mortgage or rent on time? Patient declined 10/16/19 25 Number of Times Moved in the Last Year Not on fi le 10/15/2024 At any time in the past 12 m [facility], were you homeless or living in a assisted (including now)? Patient declined 10/15/2024 Education Answer Date Recorded What is the [...] Sign Reading Time Taken Comments Blood Pressure 110/58 03/23/2025 8:54 AM CDT Pulse 81 03/23/2025 8:54 AM CDT Temperature 36.8 C (98.2 F) 03/23/2025 8:54 AM CDT Respiratory Rate 16 03/23/2025 8:54 AM CDT Oxygen Saturation 98% 03/23/2025 8:54 AM CDT Inhaled Oxygen Concentration - - Weight 65.8 kg (145 lb) 03/23/2025 8:54 AM CDT Height 158.8 cm (5' 2.5) 02/27/2024 8:36 AM CDT Body Mass Index 26.1 02/27/2024 8:36 AM CDT Plan of Treatment Upcoming Encounters Date Type Department Care Team (Late st Contact Info) Description 05/05/2025 9:00 AM CDT Office Visit [facility] - Primary Care - [place] [address] [place] [address] Arsenio Mendes, PAC [address] [place] [address] Health Maintenance Due Date Last Done Comments DTaP/Tdap/Td Immunization (6 - Tdap) 04/16/2005 04/15/2005, 10/30/1995, 06/22/1992, Additional history exists Pap Smear 12/13/2011 Pneumococcal Immunization Combined (2 of 2 - PPSV23, PCV20, or PCV21) 09/08/2013 07/14/2013 Human Papillomavirus (HPV) Immunization (1 - 3-dose SCDM series) 2017 Cervical Cancer Screening (CCS) 2020 HPV/Cotest 2020 Influenza Immunization (#1) 2025 04/25/2015 SARS-COV-2 Immunization (3 - season) 2025 11/03/2020, 10/06/2020 Respiratory Syncytial Virus (RSV) Immunization [...] PANEL ACUTE (AHP) Routine 05/21/2021 8:56 AM COMPOSITION FLOOR LAYER Elevated liver function tests from Last 3 Months or Most Recently Relevant to Health Maintenance Results * HEPATITIS PANEL ACUTE (AHP) (05/21/2021 8:56 AM COMPOSITION FLOOR LAYER) HEPATITIS A IGM ANTIBODY NON DETECTED NON DETECTED [facility] ARCH [id number] 05/21/2021 9:53 PM COMPOSITION FLOOR LAYER [facility] Comment: IGM Antibodies to HAV not detected. Does not exclude early acute or recovered HAV infection. HEP B CORE AB (IGM) NON DETECTED NON DETECTED [facility] ARCH [id number] B 05/21/2021 9:53 PM COMPOSITION FLOOR LAYER [facility] Comment:IGM anti-HBC not det ected. Does not exclude the possibility of exposure to or infection with HBV. HEPATITIS B SURFACE ANTIGEN NON DETECTED NON DETECTED [facility] ARCH [id number] B 05/21/2021 9:53 PM COMPOSITION FLOOR LAYER [facility] Comment:A nonreactive test r esult does not exclude the possibility of exposure to or infection with Hepatitis B virus. A nonreactive test result in individuals with prior exposure to hepatitis B may be due to antigen levels below the detection limit of this assay or lack of antigen reactivity to the antibodies in this assay. hepatitis C antibody 0.15 <1 S/CO [facility] ARCH [id number] B 05/21/2021 9:53 PM COMPOSITION FLOOR LAYER [facility] Comment: Signal/Cutoff ratio < 0.79 is Nondetected Signal/Cutoff ratio 0.80-0.99 is Grayzone Signal/Cutoff ratio > 0.99 is Detected Supplemental assays are recommended if signal/cutoff ratio is >/=1.00. Signal/cutoff ratio result >/= 5.00 is 97% predictive of positivity for recombinant immunoblot assay (RIBA) and will be reported to the [place] Department of Public Health as required. Blood Venipuncture / Unknown 05/21/2021 8:56 AM COMPOSITION FLOOR LAYER 05/21/2021 8:56 AM COMPOSITION FLOOR LAYER us Ila Kwan APRN, CNP HEMATOLOGY ORDERABLES F inal Result [facility] [address] [place] [address], from Last 3 Months or Most Recently Relevant to Health Maintenance Insurance [facility] [employer] [facility] Care Teams Staff Field Engineer Relationship Specialty Start Date End Date Arsenio Mendes, PAC [address] [place] [address] PCP - General Physician Well Services Operator 11/18/22
== END 2025-04-07 18:08 | disposition home or self-care (01) ==
PROVIDERS: Emergency Provider Registered Nurse
DX: M25.522 Pain in left elbow (principal); F17.210 Nicotine dependence, cigarettes, uncomplicated; F90.9 Attention-deficit hyperactivity disorder, unspecified type; F41.9 Anxiety disorder, unspecified
CPT/HCPCS: 73080; 99213; G0463